=== PATIENT | male | born 1945 | race Caucasian/White ===

== ENCOUNTER 2023-11-28 03:51 | Observation (INO) | payer OTHER, SELFPAY ==
[2023-11-27 17:32] VITALS: BP 124/66
[2023-11-27 17:33] VITALS: BP 124/66
[2023-11-27 17:36] VITALS: BMI 25.2
[2023-11-27 19:00] VITALS: BP 120/65
--- NOTE | 2023-11-27 19:03 | ED.GENMED ---
History of Present Illness
General
Chief Complaint: Musculo-Skeletal Complaint
Source: patient
Exam Limitations: none
Time Seen by Provider: 11/27/23 18:27
Nursing documentation reviewed up to this point in time: agreed with
Travel History
Have you had any contact with someone who has COVID-19?: No
Do you have any symptoms of coronavirus? Fever > 100 degrees, chills, cough, shortness of breath, sore throat, loss of taste or smell, muscle aches, or headache?: No
History of Present Illness
History of Present Illness:
78 y/o M
with h/o afib s/p defib, no thinners, chf, htn,
says he was playing [place] at [employer] and lost his balance, landing on his left side. he was able to get up and was limping with pain on his left upper thigh. pt sat down for a few hours and when he went to stand up couldn't put weight on
his leg
he denies any deformity, numness/tingling/weakness/bruising.
he did not take anything for pain
needed to come via ambulance because he wasn't able to get up from his chair
Past History
Past History
ED Past Medical History: Arrthythmia (Atrial fib), CAD, Cancer (Bladder CA, Skin CA), CHF, HTN, Hypercholesterolemia, MS, Hypothyroidism and Other (Cardiomyopathy, PNA, )
ED Past Surgical History: Cardiac ( pacer/Defibulator, VT ablation, Cardiac arrest), Cholecystectomy and Urological (TURP)
Social History
Tobacco: Non-smoker
Alcohol: None
Drug: None
Personal:
Living: with family
Review of Systems
Review of Systems
Allergies reviewed?: Yes
All Other Systems: Not applicable
Phy Exam
Physical Exam
Physical Exam:
GENERAL: Alert , in no apparent distress
HEAD: NCAT
NECK: no midline tenderness, active ROM intact, no paraspinal muscle tenderness;
CARDIAC: Regular rate and rhythm, no edema
LUNGS: Clear breath sounds bilaterally, no acute respiratory distress, no wheezes/rales/rhonchi
ABDOMEN: Soft, without focal tenderness, no r/g, no cvat
NEUROLOGICAL: Alert and oriented, no focal neuro deficits, CN intact, 5/5 strength, sensation intact
SKIN: Warm and dry,
MUSCULOSKELETAL: No signs of bruising, no significant tenderness, patient has pain in his left groin and left upper thigh with hip flexion and rotation internally and externally, he is able to straight leg raise off the bed approximately 20 degrees
but he does have some pain in that area. There is no back tenderness or back pain
PSYCH: Normal and appropriate interaction.
Course
Orders/Labs/Results
Orders:
Orders
11/27/23 18:04
CR Femur - Left Min 2 Vw Urgent
Comment:
Reason For Exam: fall, pain
Hip, Left 2-3 Views [CR Hip - LT w/wo Pel 2-3 Vw*] Urgent
Comment:
Reason For Exam: fall, pain
Include a pelvis x-ray?: Yes
11/27/23 19:02
Acetaminophen [Tylenol] 650 mg PO NOW STA
11/27/23 20:14
CT Pelvis W/o Iv Contrast Urgent
Comment:
Reason For Exam: left hip and upper thigh pain after fall;
11/27/23 23:06
Complete Blood Count/With Diff Urgent
11/27/23 23:36
Comprehensive Metabolic Panel Urgent
11/28/23 03:32
Admit/Transfer Patient As Directed
Co-Sign Provider:
Level of Care: Observation services
Assign to:: Medical/Surgical
Physician / Group: Deysi/hospitalist
Diagnosis: fall, non-displaced pelvic fx
Reason for Hospitalization: fall, non-displaced pelvic fx
11/28/23 03:33
Code Status As Directed
Resuscitation Status: Full Code
11/28/23 05:21
Acetaminophen [Tylenol] 650 mg PO Q4HPRN PRN
Nitroglycerin Sublingual [Nitrostat (Sublingual)] 0.4 mg SL [id number] PRN
Tramadol HCl [Ultram] 50 mg PO Q6HPRN PRN
11/28/23 05:21
Case Management Consult ONCE
Case Management Consult: Discharge Planning
Activity As Directed
Activity Level: With Assistance
Vital Signs As Directed
Frequency: Per unit guidelines
Pulse Ox/spot Check [RESP] Routine
Quantity: 1
DX Deep Vein Thrombosis Video Routine
11/28/23 05:55
Basic Metabolic Panel IN AM
11/28/23 Breakfast
Cholesterol Lowering
At Your Request: Full Participation
Cholesterol Lowering: Sodium, 2 Gram
11/28/23 07:00
Finasteride [Proscar] 5 mg PO DAILY@0700
Levothyroxine [Synthroid] 50 mcg PO DAILY AT 0700
11/28/23 08:00
Amiodarone [Pacerone] 200 mg PO DAILY
Carvedilol [Coreg] 12.5 mg PO BID
Sacubitril 24/Valsartan 26 [Entresto 24 mg/26 mg] 1 tab PO BID
Spironolactone [Aldactone] 12.5 mg PO DAILY
11/28/23 18:00
Aspirin Low Dose EC [Aspir Low (Enteric Coated)] 81 mg PO QPM
Enoxaparin Sodium [Lovenox] 40 mg SC QPM
Rosuvastatin Calcium [Crestor] 20 mg PO QPM
Abnormal Lab Results
11/27/23 11/27/23
23:06 23:36
WBC 10.9 H 10^3/uL
(4.8-10.8)
RBC 3.80 L 10^6/uL
(4.70-6.10)
Hgb 12.4 L g/dL
(13.0-18.0)
Hct 36.2 L %
(39.0-52.0)
MCV 95.3 H fL
(80.0-94.0)
MCH 32.6 H pg
(27.0-31.0)
Abs Immat Gran (auto) 0.1 H 10^3/uL
(0-0.05)
Absolute Neuts (auto) 8.7 H 10^3/uL
(1.4-6.5)
Absolute Lymphs (auto) 1.0 L 10^3/uL
(1.2-3.4)
Absolute Monos (auto) 1.0 H 10^3/uL
(0.1-0.6)
Neutrophils % 79.4 H %
(42.2-75.2)
Lymphocytes % 9.1 L %
(20.5-51.1)
BUN 29 H mg/dl
(9-20)
Glucose 121 H mg/dl
(70-99)
Total Protein 5.6 L g/dl
(6.3-8.2)
Albumin 3.4 L g/dl
(3.5-5.0)
11/27/23 23:06
11/27/23 23:36
Vital Signs
Initial and Last Documented VS:
Initial Vital Signs
Temp Pulse Resp BP Pulse Ox
98.2 F 61 18 124/66 96
11/27/23 17:32 11/27/23 17:32 11/27/23 17:32 11/27/23 17:32 11/27/23 17:32
Last Documented Vital Signs
Temp Pulse Resp BP Pulse Ox
97.8 F 64 16 115/67 100
11/30/23 07:10 11/30/23 12:36 11/30/23 07:10 11/30/23 12:36 11/30/23 08:15
MDM/Problems Addressed
Differential Diagnosis Includes:
pelvic fracture, hip fracture, contusion
MDM/Problems Addressed:
78 y/o M with h/o defibrillator, afib, htn, hld, chf
here for left upper leg pain after mechanical fall today
was initially able to walk on it and then had trouble getting up from sitting
lives alone at [facility]
no thinners
no head strike
didn't get presyncopal
pt has no tenderness to palpation of the leg
nv intact
able to flex the hip some and rotate but with pain
able to straight leg raise but has some pain
xrays independently reviewed by me and no obvious fx
medicated with tylenol and attempted to get up but couldn't weight bear
ct shows a superior pubic ramus fx
pt tried to get up with a walker and is not able to walk far enough to feel safe to go home and is agreeable to stay for placement.
*Critical Care Note
Total Time (30-74mins, 75-104mins- exclusive of procedures): Not Applicable
ED Attending Note
-
Portions of this chart may have been created with voice recognition software.� Occasional wrong word or��sound alike� substitutions may have occurred due to the inherent limitations of voice recognition software.
Discharge Plan
Departure
Patient Disposition: Admit
Date of Disposition: 11/27/23
Time of Disposition: 22:31
Admit to: Med/Surg
Presentation/result/management discussed w/ accepting MD/DO: Hospitalist
Condition: Fair
Covid-19: Not Applicable
Discharge Problem:
Fracture of pubic ramus
Interventions
Interventions:
*Risk Screen - Suicide Last Done: 11/28/23 04:52
*General Assessment Last Done: 11/27/23 17:36
*Neglect/Abuse Screening Last Done: 11/27/23 17:36
ED- Fall Risk Assessment Last Done: 11/27/23 23:07
*ED COVID-19 Vaccine History Last Done: 11/28/23 04:52
*Nursing Disposition Last Done: 11/28/23 04:30
ED-Musculoskeletal Assessment Last Done: 11/27/23 23:07
Discharge Date and Time
Discharge Date/Time: 11/28/23 05:04
[2023-11-27] MEDS: TYLENOL 650 MG PO (19:05)
[2023-11-27 22:57] VITALS: BP 98/59
[2023-11-27 23:00] VITALS: BP 98/61
[2023-11-27 23:06] VITALS: BP 105/53
[2023-11-27 23:25] LABS: % Basophils 0.5 % (0-2); % Eosinophils 1.3 % (0-6); % Immature Granulocytes 0.5 % (0-0.5); % Lymphocytes 9.1 % (20.5-51.1); % Monocytes 9.2 % (1.7-9.3); % Neutrophils 79.4 % (42.2-75.2); Absolute Basophils 0.1 10^3/uL (0-0.2); Absolute Eosinophils 0.1 10^3/uL (0-0.7); Absolute Immature Granulocytes 0.1 10^3/uL (0-0.05); Absolute Neutrophils 8.7 10^3/uL (1.4-6.5); Hematocrit 36.2 % (39.0-52.0); Hemoglobin 12.4 g/dL (13.0-18.0); Mean Corp Hgb Conc. 34.3 g/dL (33.0-37.0); Mean Corpuscular Hgb 32.6 pg (27.0-31.0); Mean Corpuscular Volume 95.3 fL (80.0-94.0); Mean Platelet Volume 9.7 fL (7.4-10.4); Nucleated Red Blood Cells % 0 % (-); Platelet Count 155 10^3/uL (130-400); Red Cell Dist. Width 13.4 % (11.5-14.5); White Blood Cell Count 10.9 10^3/uL (4.8-10.8)
[2023-11-27 23:58] LABS: ALT (SGPT) 46 U/L (0-50); AST (SGOT) 50 U/L (17-59); Albumin 3.4 g/dl (3.5-5.0); Alkaline Phosphatase 90 U/L (38-126); Blood Urea Nitrogen 29 mg/dl (9-20); Calcium 8.6 mg/dl (8.4-10.2); Carbon Dioxide 27 mmol/L (22-30); Chloride 105 mmol/L (98-107); Estimated Creatinine Clearance 44 ml/min; Glucose 121 mg/dl (70-99); Potassium 4.9 mmol/L (3.5-5.1); Sodium 137 mmol/L (135-145); Total Protein 5.6 g/dl (6.3-8.2); eGFR > 60.00
[2023-11-28] VITALS (12 sets, daily range): BP systolic 68–123; BP diastolic 40–74; PULSE 60–64; O2SAT 94; BMI 23.5
--- NOTE | 2023-11-28 03:26 | HPS.HSE ---
Family Physician
-
Family Physician: Sam Saavedra
Chief Complaint
-
unable to ambulate due to left leg pain
History of Present Illness
The patient is a pleasant 78 yo gentleman with PMH significant for A.fib, CAD, bladder cancer, CHF, HTN, cardiomyopathy, who presents from [facility] following playing Ping Pong with a friend and falling after losing his balance. He was limping
due to left upper thigh pain and unable to ambulate. He was having difficulty putting weight on left leg, found to have pubic ramus fracture. No deformity. No LOC, no CP, no SOB, no palpitations.
Medical History
Past Medical History
Past Medical History: Reports Other
Additional Past Medical History:
ASCVD
Ischemic Cardiomyopathy / Chronic HFrEF
Paroxysmal Atrial Fibrillation
Ventricular Tachycardia with History of VT Shock and Ablation (2017)
CKD III
Bladder Cancer
DDD
Hypothyroidism
BPH
Past Surgical History: Reports Other
Additional Past Surgical History:
BiV AICD Placement
VT Ablation
TURP
Cholecystectomy
Non-Melanoma Skin Cancer Excisions
Social History
Tobacco: Non-smoker
Alcohol: Occasional (Rarely)
Drug: None
Personal:
Living: With Family
Family History
Family History: Not pertinent
Allergies / Home Medications
Allergies reflects when Allergies were last updated in [facility].
Home Medications with original date entered in [facility]
Allergy/Medication List:
Allergies
Allergy/AdvReac Type Severity Reaction Status Date / Time
lisinopril Allergy Rash Verified 11/27/23 17:32
Home Medications
rosuvastatin 20 mg tablet (Crestor) 20 mg PO QPM High cholesterol 02/16/17
levothyroxine 50 mcg tablet 50 mcg PO DAILY AT 0700 Thyroid 12/06/21
nitroglycerin 0.4 mg sublingual tablet 0.4 mg sublingual [id number] PRN chest pain 12/06/21
amiodarone 200 mg tablet (Pacerone) 200 mg PO DAILY Heart disease/condition 12/09/21
aspirin 81 mg tablet,delayed release 81 mg PO QPM Blood clot prevention/tx 04/07/22
dutasteride 0.5 mg capsule 0.5 mg PO DAILY@0700 Urinary issue 04/07/22
carvedilol 12.5 mg tablet 12.5 mg PO BID Blood pressure #1 tab 01/12/23
sacubitril 24 mg-valsartan 26 mg tablet (Entresto) 1 tab PO BID Heart Failure #1 tab 01/12/23
spironolactone 25 mg tablet 12.5 mg PO DAILY Fluid retention/Swelling #1 tab 01/12/23
Review of Systems
-
A 12 point ROS was completed and negative except as noted: Yes
Physical Exam
Vital Signs
Vital Signs
Temp Pulse Resp BP Pulse Ox
98.2 F 60 18 96/58 95
11/27/23 17:32 11/28/23 02:10 11/27/23 22:01 11/28/23 02:00 11/28/23 02:00
Physical Exam
General: Well Developed, Well Nourished, No Apparent Distress, Comfortable and Conversant
HEENT: NormoCephalic and Anicteric
Respiratory: Clear
GI: Soft, Non Tender and Non Distended
Musculoskeletal: No Clubbing, No Cyanosis and No Edema
Skin: Warm
Neuro: AO x 3 and No Motor Deficits
Psych: Calm
Laboratory Results
-
11/27/23 23:06
11/27/23 23:36
Laboratory Results
Total Bilirubin 1.0 mg/dl (0.2-1.3) 11/27/23 23:36
AST 50 U/L (17-59) 11/27/23 23:36
ALT 46 U/L (0-50) 11/27/23 23:36
Alkaline Phosphatase 90 U/L (38-126) 11/27/23 23:36
Impression/Plan
-
IMPRESSION:
Mechanical fall at [facility]
#Nondisplaced fracture of the left inferior pubic ramus, stable pelvic fracture�
#Diffuse osteopenia suspected
-PT/OT, evaluate for rehab placement at [facility], CM consult as well
-supportive management
Chronic medical issues:
ASCVD
Ischemic Cardiomyopathy / Chronic HFrEF
Paroxysmal Atrial Fibrillation
Ventricular Tachycardia with History of VT Shock and Ablation (2017)
CKD III
Bladder Cancer
DDD
Hypothyroidism
BPH
DVT proph
Full Code
[2023-11-28] MEDS: SYNTHROID 50 MCG PO (06:32)
[2023-11-28] MEDS: PROSCAR 5 MG PO (06:32)
[2023-11-28 06:44] LABS: Blood Urea Nitrogen 26 mg/dl (9-20); Calcium 8.6 mg/dl (8.4-10.2); Carbon Dioxide 27 mmol/L (22-30); Chloride 103 mmol/L (98-107); Estimated Creatinine Clearance 46 ml/min; Glucose 111 mg/dl (70-99); Potassium 4.4 mmol/L (3.5-5.1); Sodium 138 mmol/L (135-145); eGFR > 60.00
[2023-11-28] MEDS: ALDACTONE 12.5 MG PO (08:43)
[2023-11-28] MEDS: COREG 12.5 MG PO (08:45)
[2023-11-28] MEDS: PACERONE 200 MG PO (08:45)
[2023-11-28] MEDS: ENTRESTO 24 MG/26 MG 1 TAB PO (08:45)
--- NOTE | 2023-11-28 09:56 | CM ---
Reviewed the chart notes and spoke with the patient at the bedside. The patient is admitted under observational status. The NAIDU letter was provided and explained. The patient had no questions with regards to the letter.
The patient is recently . The patient resides alone in [facility] independent living. The patient reports no DME/VN/SNF in the past. The patient confirmed his pharmacy of choice is the [facility]. The patient's
discharge plans will depend on the patient's progress. May need SNF/rehab prior to transitioning back to home. Waiting on PT/OT evaluation/recommendation. CM continues to be available to patient/family and is monitoring medical plan for needs at
discharge.
Plan: Discharge plans will depend on the patient's progress.
--- NOTE | 2023-11-28 11:06 | W.PN.UPDATE ---
Update Note
Progress Note Update
Seen and examined independent of overnight physician.
States of sacral pain with activity. Denies any numbing or tingling.
General: Well Developed, Well Nourished, No Apparent Distress, Comfortable and Conversant
HEENT: NormoCephalic and Anicteric
Respiratory: Clear
GI: Soft, Non Tender and Non Distended
Musculoskeletal: No Clubbing, No Cyanosis and No Edema
Skin: Warm
Neuro: AO x 3 and No Motor Deficits
Psych: Calm
IMPRESSION:
Mechanical fall at [facility]
#Nondisplaced fracture of the left inferior pubic ramus, stable pelvic fracture�
#Diffuse osteopenia suspected
-PT/OT, evaluate for rehab placement at [facility], CM consult as well
-supportive management
-CT pelvis was done which showed suspected diffuse osteopenia. Nondisplaced fracture of the left inferior pubic ramus progress appreciated on axial imaging. No definitive fracture of the left superior pubic ramus although subtle fracture may be
difficult to identify particularly in light of finding of diffuse osteopenia.
-Left hip x-ray negative for fracture.
Chronic medical issues:
ASCVD
Ischemic Cardiomyopathy / Chronic HFrEF-Cont Aldactone, Entresto, carvedilol and aspirin
Paroxysmal Atrial Fibrillation�continue amiodarone. Not on anticoagulation. Continue aspirin
Ventricular Tachycardia with History of VT Shock and Ablation (2017)�continue amiodarone
CKD III
Bladder Cancer
DDD
Hypothyroidism
BPH
DVT proph
Full Code
PT/OT-Probably will require SNF. Pt interested in SNF at [facility].
[2023-11-28] MEDS: TYLENOL 650 MG PO (13:10)
[2023-11-28] MEDS: NSS 500 IV (15:29)
[2023-11-28] MEDS: ProAmatine 5 MG PO (15:32)
[2023-11-28] MEDS: LOVENOX 40 MG SC (17:32)
[2023-11-28] MEDS: ASPIR LOW (ENTERIC COATED) 81 MG PO (17:32)
[2023-11-28] MEDS: CRESTOR 20 MG PO (17:32)
[2023-11-28] MEDS: COREG PO (22:41)
[2023-11-29] VITALS (8 sets, daily range): BP systolic 76–128; BP diastolic 46–73; PULSE 61–62; O2SAT 99; BMI 24.1
[2023-11-29] MEDS: PROSCAR 5 MG PO (06:07)
[2023-11-29] MEDS: SYNTHROID 50 MCG PO (06:07)
[2023-11-29] MEDS: COREG 12.5 MG PO (08:32)
[2023-11-29] MEDS: PACERONE 200 MG PO (08:33)
--- NOTE | 2023-11-29 10:30 | W.PN.HOSP.TC ---
Today's Communication/Plan
-
monitor BP
hold entresto/aldactone
Await placement
Assessment / Plan
Assessment / Plan
General: Well Developed, Well Nourished, No Apparent Distress, Comfortable and Conversant
HEENT: NormoCephalic and Anicteric
Respiratory: Clear
GI: Soft, Non Tender and Non Distended
Musculoskeletal: No Clubbing, No Cyanosis and No Edema
Skin: Warm
Neuro: AO x 3 and No Motor Deficits
Psych: Calm
IMPRESSION:
Mechanical fall at [facility] ?due to orthostatic hypotension
#Nondisplaced fracture of the left inferior pubic ramus, stable pelvic fracture�
#Diffuse osteopenia suspected
-PT/OT, evaluate for rehab placement at [facility], CM consult as well
-supportive management
-CT pelvis was done which showed suspected diffuse osteopenia.� Nondisplaced fracture of the left inferior pubic ramus progress appreciated on axial imaging.� No definitive fracture of the left superior pubic ramus although subtle fracture may be
difficult to identify particularly in light of finding of diffuse osteopenia.
-Left hip x-ray negative for fracture.
Chronic medical issues:
ASCVD
Ischemic Cardiomyopathy / Chronic HFrEF-Cont carvedilol and aspirin. Severe orthostatic hypotension noted yesterday. Pt was symptomatic. Pt agrees and wants to hold off on restarting entresto and aldactone till OP d/w with his cardiology. BP 122/60
Paroxysmal Atrial Fibrillation�continue amiodarone.� Not on anticoagulation.� Continue aspirin
Ventricular Tachycardia with History of VT Shock and Ablation (2017)�continue amiodarone
CKD III
Bladder Cancer
DDD
Hypothyroidism
BPH
DVT proph-lovenox
Full Code
PT/OT-SNF. Await placement. CM aware.
Anticipated Discharge: Today
Subjective/Interval History
-
Date of Service: November 29, 2023
severe episode of hypotension orthostatic yesterday
this am feeling better
remains with some pain
wants to work with PT
Objective Data
-
Vital Signs:
Vital Signs
Temp Pulse Resp BP Pulse Ox
98.0 F 62 16 122/60 95
11/29/23 07:45 11/29/23 08:32 11/29/23 07:45 11/29/23 08:32 11/29/23 07:45
I&O
11/28/23 11/29/23 11/30/23
06:59 06:59 06:59
Intake Total 1450 / 1450
Output Total 1190 / 1190
Balance 260 / 260
--- NOTE | 2023-11-29 15:00 | CM ---
Reviewed the chart notes and spoke with the patient at the bedside. [facility] will have a bed tomorrow. Auth obtained starting 11/30-12/04; NRD 12/04; fax: [phone]; Auth # [id number]; Ambulance Auth # [id number] - Acute Care.
Call report to: [phone]
Fax report to: [phone]
Medical necessity and transport forms on chart.
--- NOTE | 2023-11-29 15:09 | VATNOTE ---
Called tocandice infusion infiltrate. Right arm elevated on pillows cool compress applied. No c/o pain at this time. Will monitor closely.
[2023-11-29] MEDS: ProAmatine 5 MG PO (15:16)
--- NOTE | 2023-11-29 15:17 | PTCARENOTE ---
OT reported to RN that patients blood pressure at rest was 106/50 HR 61 but after walking, BP dropped to 76/46 HR 62. Patient c/o feeling tired. Dr. Mendoza made aware. Midodrine 5 mg po ordered stat and standing. Given at 1517. BP at that time was
110/55 sitting.
[2023-11-29] MEDS: LOVENOX 40 MG SC (17:22)
[2023-11-29] MEDS: CRESTOR 20 MG PO (17:22)
[2023-11-29] MEDS: ASPIR LOW (ENTERIC COATED) 81 MG PO (17:22)
[2023-11-29] MEDS: ProAmatine PO (17:25)
[2023-11-29] MEDS: COREG 6.25 MG PO (20:00)
[2023-11-30 05:07] VITALS: BMI 24.3
[2023-11-30] MEDS: PROSCAR 5 MG PO (05:59)
[2023-11-30] MEDS: SYNTHROID 50 MCG PO (06:00)
[2023-11-30 07:10] VITALS: BP 114/64
[2023-11-30 08:00] VITALS: BP 112/62; BP 113/64; BP 114/64; PULSE 61; PULSE 63; PULSE 64
[2023-11-30] MEDS: COREG 6.25 MG PO (08:22)
[2023-11-30] MEDS: PACERONE 200 MG PO (08:22)
[2023-11-30] MEDS: ProAmatine 5 MG PO ×2 (08:22→12:36)
--- NOTE | 2023-11-30 10:46 | W.PN.HOSP.TC ---
Today's Communication/Plan
-
DC SNF
Assessment / Plan
Assessment / Plan
General: Well Developed, Well Nourished, No Apparent Distress, Comfortable and Conversant
HEENT: NormoCephalic and Anicteric
Respiratory: Clear
GI: Soft, Non Tender and Non Distended
Musculoskeletal: No Clubbing, No Cyanosis and No Edema
Skin: Warm
Neuro: AO x 3 and No Motor Deficits
Psych: Calm
IMPRESSION:
Mechanical fall at [facility] ?due to orthostatic hypotension
#Nondisplaced fracture of the left inferior pubic ramus, stable pelvic fracture�in setting of osteopenia
#Diffuse osteopenia suspected
-PT/OT, evaluate for rehab placement at [facility], CM consult as well
-supportive management
-CT pelvis was done which showed suspected diffuse osteopenia.� Nondisplaced fracture of the left inferior pubic ramus progress appreciated on axial imaging.� No definitive fracture of the left superior pubic ramus although subtle fracture may be
difficult to identify particularly in light of finding of diffuse osteopenia.
-Left hip x-ray negative for fracture.
Chronic medical issues:
ASCVD
Ischemic Cardiomyopathy / Chronic HFrEF-Cont carvedilol and aspirin. Severe orthostatic hypotension noted with therapy pt was symptomatic. Pt agrees and wants to hold off on restarting entresto and aldactone till OP d/w with his cardiology.
Negative orthostatic this morning with midodrine. Patient said he will discuss with his primary knot tying operator about if he needs to go back on Entresto and Aldactone.
Paroxysmal Atrial Fibrillation�continue amiodarone.� Not on anticoagulation.� Continue aspirin
Ventricular Tachycardia with History of VT Shock and Ablation (2017)�continue amiodarone
CKD III
Bladder Cancer
DDD
Hypothyroidism
BPH
DVT proph-lovenox
Full Code
PT/OT-SNF.
More than 30 minutes spent in discharge including
Final examination of the patient
Summarizing hospital stay
Instructions for continuing care to all relevant caregivers
Preparation of discharge records, prescriptions, and referral forms
Total time spent (in minutes): 45
Anticipated Discharge: Today
Subjective/Interval History
-
Date of Service: November 30, 2023
Patient denies any pelvic pain
Denies any lightheaded or dizziness
Objective Data
-
Vital Signs:
Vital Signs
Temp Pulse Resp BP Pulse Ox
97.8 F 64 16 112/62 100
11/30/23 07:10 11/30/23 08:22 11/30/23 07:10 11/30/23 08:22 11/30/23 08:15
I&O
11/29/23 11/30/23 12/01/23
06:59 06:59 06:59
Intake Total 1450 / 1450 480 / 480
Output Total 1190 / 1190 950 / 950
Balance 260 / 260 -470 / -470
--- NOTE | 2023-11-30 11:06 | CM ---
Reviewed the chart notes and spoke with the patient at the bedside. [facility] will have a bed tomorrow. Auth obtained starting 11/30-12/04; NRD 12/04; fax: [phone]; Auth # [id number]; Ambulance Auth # [id number] - Acute Care. [place] falguni Persaud
[place] Admissions Liaison provided with auth information.
Call report to: [phone]
Fax report to: [phone]
Medical necessity and transport forms on chart.
--- NOTE | 2023-11-30 11:09 | W.DCSUMMARY ---
Discharge Summary
Discharge Data
Date of Admission: 11/28/23
Date of Discharge: 11/30/23
-
Pending Results: No
Hospital Course
78-year-old male past medical history of CAD, chronic HFrEF, atrial fibrillation, ventricular tachycardia, CKD, bladder cancer, osteoarthritis, hypothyroidism, BPH, orthostatic hypotension who is presenting after mechanical fall at [facility].
Patient underwent CT of the pelvis which showed uspected diffuse osteopenia.� Nondisplaced fracture of the left inferior pubic ramus progress appreciated on axial imaging.� No definitive fracture of the left superior pubic ramus although subtle
fracture may be difficult to identify particularly in light of finding of diffuse osteopenia. Patient was otherwise calm Occupational Therapy. Patient was found to have a severely low blood pressure and found to be symptomatic with orthostatic
hypotension. Aldactone and Entresto was placed on hold and patient was recommended to discuss with his primary physical therapy teacher and patient agreed with plan. Carvedilol dose was decreased to 6.25 mg twice daily. Patient remained without severe pain
and will be going to group home facility.
Discharge Plan
-
Patient Disposition: Shelter/SNF
Discharge Diagnosis/Procedures: Mechanical fall leading to nondisplaced fracture of the left inferior pubic ramus in the setting of osteopenia likely secondary to orthostatic hypotension
Condition: Fair
Diet: 2 Gram Sodium and Restrict fluids to 48 oz
Activity: With assistance and As tolerated
Driving Restrictions: Not until seen by your Dr
Referrals:
Sam Saavedra MD [Family Provider] - in less than 1 week
Remy Noland MD [Active] - in one to two weeks
Prescriptions:
New
acetaminophen 325 mg Tablet
650 mg PO Q4HPRN PRN (Reason: mild pain/PALACIO/temp> 100.4F) 14 Days Qty: 30 0RF
midodrine 5 mg Tablet
5 mg PO TID@0800,1300,1800 Qty: 90 0RF
Rx Instructions:
Hold for SBP>110
Continued
rosuvastatin [Crestor] 20 MG tablet
20 mg PO QPM
Hold Instructions: Resume on 01/26/23. Restart once liver function numbers are back to normal.
levothyroxine 50 MCG tablet
50 mcg PO DAILY AT 0700
nitroglycerin 0.4 MG tablet, sublingual
0.4 mg sublingual [id number] PRN (Reason: chest pain)
amiodarone [Pacerone] 200 MG tablet
200 mg PO DAILY
Patient Comments:
pt stated Dr Noland decreased dose to daily
aspirin 81 MG tablet,delayed release (DR/EC)
81 mg PO QPM
dutasteride 0.5 MG capsule
0.5 mg PO DAILY@0700
Changed
carvedilol 12.5 MG tablet
6.25 mg PO BID Qty: 1 0RF
Held
spironolactone 12.5 MG tablet
12.5 mg PO DAILY Qty: 1 0RF
Hold Instructions: Resume on 12/28/23. Hold till seen by cardiology evaluation
Patient Comments:
PT UNSURE OF MG, PHARMACY TO CHECK
Rx Instructions:
See cardiology instruction regarding restarting
Entresto 24-26 mg Tablet
1 tab PO BID Qty: 1 0RF
Hold Instructions: Resume on 12/28/23. Hold till seen by cardiology evaluation
Rx Instructions:
See cardiology instruction regarding restarting
Discharge Orders:
Discharge Patient (As Directed); Ordered 11/30/23
Ordered By: Fredy Mendoza
[2023-11-30 11:35] LABS: COVID-19 Antigen Negative (Negative)
== END 2023-11-30 14:53 ==
LOC: 2 SOUTH 03:51
PROVIDERS: ADMITTING PHYSICIAN Internal Medicine; ATTENDING PHYSICIAN Hospitalist; EMERGENCY PHYSICIAN Emergency Medicine; FAMILY PHYSICIAN Family Medicine
DX: S32.592A Other specified fracture of left pubis, initial encounter for closed fracture (principal); M79.652 Pain in left thigh; I95.1 Orthostatic hypotension; W01.0XXA Fall on same level from slipping, tripping and stumbling without subsequent striking against object, initial encounter; Y93.89 Activity, other specified; I13.0 Hypertensive heart and chronic kidney disease with heart failure and stage 1 through stage 4 chronic kidney disease, or unspecified chronic kidney disease; I25.10 Atherosclerotic heart disease of native coronary artery without angina pectoris; E03.9 Hypothyroidism, unspecified; I25.5 Ischemic cardiomyopathy; E78.00 Pure hypercholesterolemia, unspecified; Y92.838 Other recreation area as the place of occurrence of the external cause; I48.0 Paroxysmal atrial fibrillation; I50.22 Chronic systolic (congestive) heart failure; N40.0 Benign prostatic hyperplasia without lower urinary tract symptoms; N18.30 Chronic kidney disease, stage 3 unspecified; I25.2 Old myocardial infarction; Z85.51 Personal history of malignant neoplasm of bladder; Z87.01 Personal history of pneumonia (recurrent); Z90.49 Acquired absence of other specified parts of digestive tract; Z86.74 Personal history of sudden cardiac arrest; Z60.2 Problems related to living alone; Z95.810 Presence of automatic (implantable) cardiac defibrillator; Z85.828 Personal history of other malignant neoplasm of skin; Z90.79 Acquired absence of other genital organ(s); Z88.8 Allergy status to other drugs, medicaments and biological substances; Z79.82 Long term (current) use of aspirin; Z79.890 Hormone replacement therapy; Z11.52 Encounter for screening for COVID-19
CPT/HCPCS: 72192; 73502; 73552; 80048; 80053; 85025; 87811; 96361; 96365; 96375; 96376; 97162; 97166; 97530; 97535; 99285; G0378

== ENCOUNTER → 2023-12-22 11:09 | Outpatient (REF) | payer OTHER, SELFPAY | LOC: HWRAD 11:09 | PROVIDERS: ATTENDING PHYSICIAN Internal Medicine | DX: M54.50 Low back pain, unspecified (principal) | CPT/HCPCS: 72110 ==

== ENCOUNTER 2023-12-26 20:01 | Inpatient (IN) | payer OTHER, SELFPAY ==
[2023-12-26 15:50] VITALS: BMI 25.8
--- NOTE | 2023-12-26 16:00 | ED.GENMED ---
History of Present Illness
General
Chief Complaint: Swelling
Time Seen by Provider: 12/26/23 16:00
Travel History
Have you had any contact with someone who has COVID-19?: No
Do you have any symptoms of coronavirus? Fever > 100 degrees, chills, cough, shortness of breath, sore throat, loss of taste or smell, muscle aches, or headache?: No
History of Present Illness
History of Present Illness:
HPI: Patient presents from [facility] independent living by EMS. He was concerned because of lower extremity edema without shortness of breath. He was also concerned of ongoing back discomfort. He was recently found to have a pubic ramus
fracture on the left side last admission. While in the hospital he was hypotensive and was started on midodrine and Aldactone and Entresto was held. The notes from today from [facility] indicated the patient saw a healthcare there today due to
legs feeling heavy with increased welling despite receiving Aldactone and Lasix. A recent ultrasound was negative for DVT. Dr. Mueller's note recommends IV diuretic, repeat echo, more advanced imaging of the lumbar spine than just plain film.
EXAM:
GENERAL: Well appearing in no distress
HEENT: Moist oral mucosa
CARDIOVASCULAR: No murmurs, normal heart rate and rhythm, No chest wall tenderness, device noted the right anterior chest wall with scar
PULMONARY: No respiratory distress, some faint rales
ABDOMEN: Soft with no peritoneal signs, no tenderness
NEUROLOGIC: Excellent strength all extremities, no coordination deficits
PSYCHIATRIC: Appropriate mental status, normal insight and judgement
BACK: Decreased active range of motion of the lumbar spine due to pain
EXTREMITIES: Nontender, 2+ bilateral edema, moves all extremities equally
SKIN: No rash, no lesions
ED COURSE:
4:15 PM: I initially evaluated patient
NUMBER AND COMPLEXITY OF PROBLEMS ADDRESSED AT THE ENCOUNTER
� Chronic conditions affecting care: A-fib, CHF, AICD/history of cardiac arrest, high blood pressure, hyperlipidemia, recent pubic ramus fracture
� Acute Exacerbation and/or Progression of Chronic Illness: This is a subacute problem
� Differential Diagnosis includes: Progression of lumbar spine fracture, worsening CHF
AMOUNT AND/OR COMPLEXITY OF DATA TO BE REVIEWED AND ANALYZED
� I performed an independent evaluation of and my interpretation is:
EKG: AV paced 60, no significant change from 01/10/2023
CT: CT shows transverse process fracture and sacral fracture
X-rays: Chest x-ray suggest volume overload/pulmonary congestion
Laboratory Studies: CBC shows mild anemia near recent baseline, chemistries unremarkable, troponin 0.021, BNP 12,500 up from 818 last year
Other:
� Review of other/old records: I reviewed notes from [facility]. Dr. Mueller saw the patient today
� Clinical information was obtained by an independent historian: I also spoke to the daughter at bedside
� Prescriptions/Medications Considered but not given:
� Further testing considered but not performed:
RISK OF COMPLICATIONS AND/OR MORBIDITY OR MORTALITY OF PATIENT MANAGEMENT
� Social determinants of health affecting care: Currently staying at [facility]
� Discussion with other providers: Dr. Bennett for admission at 7:10 PM
� Escalation of care including admission/observation vs risk of discharge considered: Dr. Mueller's note request further imaging of the L-spine, echo, IV diuresis. I feel this would be reasonable and we will plan keeping in the
hospital. On reassessment at 7:20 PM, the patient does have ongoing pain and now request something more for pain. Will try dose of tramadol�he tells me he was trying to avoid narcotics but feels the pain is too significant to not try a narcotic.
He has not improved with Tylenol. I also gave IV diuretic.
Past History
Past History
ED Past Medical History: Arrthythmia (Atrial fib), CAD, Cancer (Bladder CA, Skin CA), CHF, HTN, Hypercholesterolemia, [place], Hypothyroidism and Other (Cardiomyopathy, PNA, )
ED Past Surgical History: Cardiac ( pacer/Defibulator, VT ablation, Cardiac arrest), Cholecystectomy and Urological (TURP)
Social History
Tobacco: Non-smoker
Alcohol: None
Drug: None
Personal:
Living: with family
Phy Exam
Physical Exam
Physical Exam:
See HPI
Scores
Heart Failure Risk
Heart Failure Risk Score: Not Applicable
Course
Orders/Labs/Results
Orders:
Orders
12/26/23 15:54
Electrocardiogram (*1) Urgent
Reason for Study: Other
Other Reason for Exam: Respiratory Distress
Cardiac Monitoring- Treatment ONCE
EKG- Treatment ONCE
IV Insert/Care/Rem.- Treatment PRN
O2 Therapy [RESP] Urgent
Titrate/Wean O2 to maintain O2 sat greater than (%): 93
Special Instructions: TO MAINTAIN CONTINUOUS O2 SATS >/= 93%
Pulse Ox/cont/shift [RESP] Urgent
Quantity: 1
Special Instructions: continuous pulse ox
12/26/23 16:04
Complete Blood Count/With Diff Urgent
Comprehensive Metabolic Panel Urgent
NT-proBNP Urgent
Troponin I Urgent
CR Chest Portable - 1 View Urgent
Comment:
Reason For Exam: sob
Reason Study Needs to be Portable: Unable to Transport
12/26/23 16:32
CT Lumbar Spine W/o Iv Contras Urgent
Comment:
Reason For Exam: recent fall worsening low back pain
12/26/23 16:42
Furosemide [Lasix] 40 mg IV NOW STA
12/26/23 19:23
Tramadol HCl [Ultram] 50 mg PO NOW STA
Abnormal Lab Results
12/26/23
16:04
RBC 3.90 L 10^6/uL
(4.70-6.10)
Hgb 12.7 L g/dL
(13.0-18.0)
Hct 38.2 L %
(39.0-52.0)
MCV 97.9 H fL
(80.0-94.0)
MCH 32.6 H pg
(27.0-31.0)
Abs Immat Gran (auto) 0.1 H 10^3/uL
(0-0.05)
Absolute Neuts (auto) 7.1 H 10^3/uL
(1.4-6.5)
Absolute Lymphs (auto) 0.9 L 10^3/uL
(1.2-3.4)
Absolute Monos (auto) 0.9 H 10^3/uL
(0.1-0.6)
Immature Gran % 0.7 H %
(0-0.5)
Neutrophils % 77.5 H %
(42.2-75.2)
Lymphocytes % 9.9 L %
(20.5-51.1)
Monocytes % 9.6 H %
(1.7-9.3)
Glucose 102 H mg/dl
(70-99)
Alkaline Phosphatase 141 H U/L
(38-126)
Total Protein 6.2 L g/dl
(6.3-8.2)
12/26/23 16:04
12/26/23 16:04
Vital Signs
Initial and Last Documented VS:
Initial Vital Signs
BP
152/71
12/26/23 16:01
Last Documented Vital Signs
Temp Pulse Resp BP Pulse Ox
98.0 F 76 24 142/74 92
12/26/23 16:03 12/26/23 19:04 12/26/23 19:04 12/26/23 19:04 12/26/23 19:04
*Critical Care Note
Total Time (30-74mins, 75-104mins- exclusive of procedures): Not Applicable
ED Attending Note
-
Portions of this chart may have been created with voice recognition software.� Occasional wrong word or��sound alike� substitutions may have occurred due to the inherent limitations of voice recognition software.
Discharge Plan
Departure
Patient Disposition: Admit
Date of Disposition: 12/26/23
Time of Disposition: 19:10
Presentation/result/management discussed w/ accepting MD/DO: Hospitalist
Discharge Problem:
Volume overload
Prescriptions:
No Action
rosuvastatin [Crestor] 20 MG tablet
20 mg PO QPM
Hold Instructions: Resume on 01/26/23. Restart once liver function numbers are back to normal.
levothyroxine 50 MCG tablet
50 mcg PO DAILY AT 0700
nitroglycerin 0.4 MG tablet, sublingual
0.4 mg sublingual [id number] PRN (Reason: chest pain)
amiodarone [Pacerone] 200 MG tablet
200 mg PO DAILY
Patient Comments:
pt stated Dr Noland decreased dose to daily
aspirin 81 MG tablet,delayed release (DR/EC)
81 mg PO QPM
dutasteride 0.5 MG capsule
0.5 mg PO DAILY@0700
spironolactone 12.5 MG tablet
12.5 mg PO DAILY Qty: 1 0RF
Hold Instructions: Resume on 12/28/23. Hold till seen by cardiology evaluation
Patient Comments:
PT UNSURE OF MG, PHARMACY TO CHECK
Rx Instructions:
See cardiology instruction regarding restarting
acetaminophen 325 mg Tablet
650 mg PO Q4HPRN PRN (Reason: mild pain/PALACIO/temp> 100.4F) 14 Days Qty: 30 0RF
midodrine 5 mg Tablet
5 mg PO TID@0800,1300,1800 Qty: 90 0RF
Rx Instructions:
Hold for SBP>110
carvedilol 6.25 mg tablet
6.25 mg PO BID
furosemide 20 mg tablet
20 mg PO DAILY
Referrals:
Padmini Mueller DO [Family Provider] -
Interventions
Interventions:
*Risk Screen - Suicide Last Done: 12/26/23 15:53
*General Assessment Last Done: 12/26/23 15:53
*Neglect/Abuse Screening Last Done: 12/26/23 15:53
ED- Fall Risk Assessment Last Done: 12/26/23 15:53
*ED COVID-19 Vaccine History Last Done: 12/26/23 15:53
ED- Cardiac Assessment Last Done: 12/26/23 16:04
ED- Pulmonary Assessment Last Done: 12/26/23 16:04
ED-Skin Assessment Last Done: 12/26/23 16:10
[2023-12-26 16:01] VITALS: BP 152/71
[2023-12-26 16:03] VITALS: BP 152/71
[2023-12-26 16:12] LABS: % Basophils 0.7 % (0-2); % Eosinophils 1.6 % (0-6); % Immature Granulocytes 0.7 % (0-0.5); % Lymphocytes 9.9 % (20.5-51.1); % Monocytes 9.6 % (1.7-9.3); % Neutrophils 77.5 % (42.2-75.2); Absolute Basophils 0.1 10^3/uL (0-0.2); Absolute Eosinophils 0.2 10^3/uL (0-0.7); Absolute Immature Granulocytes 0.1 10^3/uL (0-0.05); Absolute Lymphocytes 0.9 10^3/uL (1.2-3.4); Absolute Monocytes 0.9 10^3/uL (0.1-0.6); Absolute Neutrophils 7.1 10^3/uL (1.4-6.5); Hematocrit 38.2 % (39.0-52.0); Hemoglobin 12.7 g/dL (13.0-18.0); Mean Corp Hgb Conc. 33.2 g/dL (33.0-37.0); Mean Corpuscular Hgb 32.6 pg (27.0-31.0); Mean Corpuscular Volume 97.9 fL (80.0-94.0); Mean Platelet Volume 9.4 fL (7.4-10.4); Nucleated Red Blood Cells % 0 % (-); Platelet Count 300 10^3/uL (130-400); Red Cell Dist. Width 14.4 % (11.5-14.5); White Blood Cell Count 9.2 10^3/uL (4.8-10.8)
[2023-12-26 16:26] LABS: ALT (SGPT) 25 U/L (0-50); AST (SGOT) 31 U/L (17-59); Albumin 3.7 g/dl (3.5-5.0); Alkaline Phosphatase 141 U/L (38-126); Blood Urea Nitrogen 20 mg/dl (9-20); Calcium 8.8 mg/dl (8.4-10.2); Carbon Dioxide 29 mmol/L (22-30); Chloride 100 mmol/L (98-107); Estimated Creatinine Clearance 44 ml/min; Glucose 102 mg/dl (70-99); Sodium 137 mmol/L (135-145); Total Bilirubin 0.7 mg/dl (0.2-1.3); Total Protein 6.2 g/dl (6.3-8.2); eGFR > 60.00
[2023-12-26 16:36] LABS: NT-proBNP 12500 pg/ml; Troponin I 0.021 ng/ml
[2023-12-26] MEDS: LASIX 40 MG IV (16:57)
[2023-12-26 17:00] VITALS: BP 144/78
[2023-12-26 19:04] VITALS: BP 142/74
--- NOTE | 2023-12-26 19:49 | HPS.HSE ---
Family Physician
-
Family Physician: Padmini Mueller
Chief Complaint
-
swelling, lower back pain
History of Present Illness
78-year-old male past medical history of coronary artery disease, ischemic cardiomyopathy, chronic HFrEF, orthostatic hypotension, paroxysmal atrial fibrillation, ventricular tachycardia status post shock and ablation 2017, CKD 3, bladder cancer,
arthritis, hypothyroidism, BPH, presenting from [facility] dependent living for lower extremity edema for the past week and ongoing back discomfort.
Patient was recently admitted for pubic rami fracture on the left side. While in the hospital he was hypotensive and started on midodrine and Lasix, spironolactone and Entresto were held.
Patient recently had ultrasound for lower extremity edema which was negative for DVT. Swelling started a week ago and has continued despite resuming Aldactone and Lasix 3 days ago. He has gained 5 pounds in the past week. IV diuretic was
recommended by physician at [facility], repeat echo and more advanced imaging of the lumbar spine given ongoing back pain. He denies any chest pain or shortness of breath or dizziness.
Patient did not have lower back pain when he was admitted for pubic rami fracture previously. He suddenly developed right lower back pain a week ago which he thinks from ambulating too quickly. He denies any new falls or trauma. He has been
taking Tylenol and lidocaine patch without improvement in pain.
He denies smoking or alcohol use.
Medical History
Past Medical History
Past Medical History: Reports Other (coronary artery disease, ischemic cardiomyopathy, chronic HFrEF, orthostatic hypotension, paroxysmal atrial fibrillation, ventricular tachycardia status post shock and ablation 2017, CKD 3, bladder cancer,
arthritis, hypothyroidism, BPH)
Past Surgical History: Reports None
Social History
Tobacco: Non-smoker
Alcohol: None
Drug: None
Family History
Family History: Not pertinent
Allergies / Home Medications
Allergies reflects when Allergies were last updated in [facility].
Home Medications with original date entered in [facility]
Allergy/Medication List:
Allergies
Allergy/AdvReac Type Severity Reaction Status Date / Time
lisinopril Allergy Rash Verified 11/27/23 17:32
Home Medications
rosuvastatin 20 mg tablet (Crestor) 20 mg PO QPM High cholesterol 02/16/17
levothyroxine 50 mcg tablet 50 mcg PO DAILY AT 0700 Thyroid 12/06/21
nitroglycerin 0.4 mg sublingual tablet 0.4 mg sublingual [id number] PRN chest pain 12/06/21
amiodarone 200 mg tablet (Pacerone) 200 mg PO DAILY Heart disease/condition 12/09/21
aspirin 81 mg tablet,delayed release 81 mg PO QPM Blood clot prevention/tx 04/07/22
dutasteride 0.5 mg capsule 0.5 mg PO DAILY@0700 Urinary issue 04/07/22
spironolactone 25 mg tablet 12.5 mg PO DAILY Fluid retention/Swelling #1 tab 01/12/23
acetaminophen 325 mg tablet 650 mg PO Q4HPRN PRN mild pain/PALACIO/temp> 100.4F 14 days #30 tabs 11/30/23
midodrine 5 mg tablet 5 mg PO TID@0800,1300,1800 #90 tabs 11/30/23
carvedilol 6.25 mg tablet 6.25 mg PO BID 12/26/23
furosemide 20 mg tablet 20 mg PO DAILY 12/26/23
Review of Systems
-
History Source: Patient
A 12 point ROS was completed and negative except as noted: Yes
Constitutional: Reports No Symptoms
EENT: Reports No Symptoms
Respiratory: Reports No Symptoms
Cardiac: Reports No Symptoms
Abdomen/GI: Reports No Symptoms
: Reports No Symptoms
Musculoskeletal: Reports See HPI
Skin: Reports No Symptoms
Neurological: Reports No Symptoms
Endocrine: Reports No Symptoms
Hematologic/Lymphatic: Reports No Symptoms
Psych: Reports No Symptoms
Physical Exam
Vital Signs
Vital Signs
Temp Pulse Resp BP Pulse Ox
98.0 F 76 24 142/74 92
12/26/23 16:03 12/26/23 19:04 12/26/23 19:04 12/26/23 19:04 12/26/23 19:04
Physical Exam
General: Well Developed, Well Nourished and No Apparent Distress
HEENT: NormoCephalic, Moist mucous membranes and Atraumatic
Respiratory: Clear
Cardiac: S1/S2 and Regular Rhythm; No Murmur or Rub
GI: Soft, Non Tender, Non Distended and Normal Bowel Sounds; No Organomegaly
Rectal: Deferred by Provider
Musculoskeletal: No Clubbing, No Cyanosis and No Edema
Skin: No Rash
Neuro: Nonfocal/grossly intact
Laboratory Results
-
12/26/23 16:04
12/26/23 16:04
Laboratory Results
Total Bilirubin 0.7 mg/dl (0.2-1.3) 12/26/23 16:04
AST 31 U/L (17-59) 12/26/23 16:04
ALT 25 U/L (0-50) 12/26/23 16:04
Alkaline Phosphatase 141 U/L (38-126) H 12/26/23 16:04
Troponin I 0.021 ng/ml 12/26/23 16:04
Data Reviewed
-
Lab Data: Labs Reviewed by me
Old Records: Reviewed
Impression/Plan
-
IMPRESSION:
PLAN:
# Acute on chronic mild HFrEF exacerbation
-Chest x-ray shows mild pulmonary edema
-Cardiac BNP of 12,000
-Check I's and O's, daily weights
-40 IV Lasix daily
-Cardiology consulted
# Acute fracture of the left transverse process of L5 with minimal displacement
# Acute fracture of the sacrum at S2-S3, acute nondisplaced fracture bilateral sacral ala
-Tylenol for pain
-Lidocaine patch
-Tramadol
-Dilaudid for severe pain
-PT/OT
Coronary artery disease
-Continue aspirin, statin
Ischemic cardiomyopathy/chronic HFrEF
-Continue Coreg
-Continue spironolactone
-Entresto held since last admission
Orthostatic hypotension
-Continue midodrine
Paroxysmal atrial fibrillation
Ventricular tachycardia status post shock/ablation in 2017
-Continue amiodarone
CKD 3
-Renal function at baseline
Bladder cancer
Arthritis
Hypothyroidism
-Continue levothyroxine
BPH
-Continue dutasteride
DNR/DNI
DVT prophylaxis�heparin
Cardiac diet
[2023-12-26 20:00] VITALS: BP 122/83
[2023-12-26] MEDS: ULTRAM 50 MG PO (20:11)
[2023-12-26 21:00] VITALS: BP 155/97
[2023-12-27] VITALS (10 sets, daily range): BP systolic 99–154; BP diastolic 53–84; PULSE 56–62; O2SAT 97; BMI 24.1
[2023-12-27] MEDS: COREG 6.25 MG PO ×3 (00:52→20:44)
[2023-12-27] MEDS: HEPARIN 5000 UNITS SC ×3 (00:53→20:44)
--- NOTE | 2023-12-27 01:13 | PTCARENOTE ---
Pt admit from ED via stretcher. Assisted into bed and made comfortable. Denies pain when just laying but does have pain with movement. Placed on monitor-AV paced. Assessment as charted.
[2023-12-27] MEDS: SYNTHROID 50 MCG PO (05:58)
[2023-12-27] MEDS: PROSCAR 5 MG PO (05:58)
[2023-12-27 08:39] LABS: % Basophils 0.9 % (0-2); % Eosinophils 2.6 % (0-6); % Immature Granulocytes 0.6 % (0-0.5); % Lymphocytes 11.3 % (20.5-51.1); % Monocytes 9.4 % (1.7-9.3); % Neutrophils 75.2 % (42.2-75.2); Absolute Basophils 0.1 10^3/uL (0-0.2); Absolute Eosinophils 0.2 10^3/uL (0-0.7); Absolute Immature Granulocytes 0.1 10^3/uL (0-0.05); Absolute Monocytes 0.8 10^3/uL (0.1-0.6); Absolute Neutrophils 6.8 10^3/uL (1.4-6.5); Hematocrit 37.1 % (39.0-52.0); Hemoglobin 12.6 g/dL (13.0-18.0); Mean Corpuscular Hgb 32.4 pg (27.0-31.0); Mean Corpuscular Volume 95.4 fL (80.0-94.0); Mean Platelet Volume 9.2 fL (7.4-10.4); Nucleated Red Blood Cells % 0 % (-); Platelet Count 277 10^3/uL (130-400); Red Blood Cell Count 3.89 10^6/uL (4.70-6.10); Red Cell Dist. Width 14.2 % (11.5-14.5)
[2023-12-27 09:05] LABS: ALT (SGPT) 24 U/L (0-50); AST (SGOT) 29 U/L (17-59); Albumin 3.4 g/dl (3.5-5.0); Alkaline Phosphatase 145 U/L (38-126); Blood Urea Nitrogen 18 mg/dl (9-20); Calcium 8.8 mg/dl (8.4-10.2); Carbon Dioxide 28 mmol/L (22-30); Chloride 104 mmol/L (98-107); Estimated Creatinine Clearance 44 ml/min; Glucose 89 mg/dl (70-99); Magnesium 2.3 mg/dl (1.6-2.3); Potassium 3.7 mmol/L (3.5-5.1); Sodium 137 mmol/L (135-145); Total Bilirubin 0.9 mg/dl (0.2-1.3); Total Protein 5.8 g/dl (6.3-8.2); eGFR > 60.00
[2023-12-27] MEDS: ALDACTONE 12.5 MG PO (09:17)
[2023-12-27] MEDS: LASIX 40 MG IV (09:21)
[2023-12-27] MEDS: LIDOCAINE 4% PATCH 1 PATCH TOPICAL (09:22)
[2023-12-27] MEDS: PACERONE 200 MG PO (09:22)
[2023-12-27] MEDS: ProAmatine 5 MG PO ×2 (09:23→14:13)
--- NOTE | 2023-12-27 09:54 | CON.CAR ---
Addendum entered and electronically signed by Sina Fletcher MD 12/27/23 13:25:
I saw and examined the patient.
The Knitted Garment Finisher's note was reviewed and I agree with the note.
Comment:
GEN: No distress, awake, Ox3
HEENT: supple, anicteric, mmm
LUNGS: scatt rhonchi
CV: Reg, S1/S2, 1/6 syst LSB, S3+
ABD: soft, BS+, NT/ND
EXT: +1 edema
NEURO: Gross non-focal
SKIN: No rash
Plan:
He has a past medical history of ischemic cardiomyopathy with EF 25 to 30% status post BiV ICD, paroxysmal atrial fibrillation, fall and orthostasis. 1 month ago he fell and had a left inferior pubic ramus fracture. At that time his Lasix,
Aldactone and Entresto were placed on hold. He did temporarily require midodrine. He was discharged to rehab. Since then he has noticed increased fatigue, weight gain, and shortness of breath. He was then sent to the emergency room and was found
to have an elevated proBNP of 12,000. Chest x-ray suggestive of pulmonary edema.
Restart Lasix 40 mg IV daily. Continue carvedilol. Okay to continue low-dose Aldactone but would hold Entresto for now. Can consider adding midodrine as needed. Creatinine 1.2.
Will need rehab after this admission.
Remains AV paced. Continue amiodarone. Will review records regarding anticoagulation. Does have a recent fall.
Original Note:
Consultation
Consultation Request
Date/Time Consultation Performed: 12/27/23
Requesting Provider: Dr. Fuentes
Performing Provider: Ritu Angeles PA-C for Dr. Fletcher
Reason for Consultation: CHF
Medical History
-
Chief Complaint: LE edema
History of Present Illness:
Patient is an 78-year-old male with past medical history of inferior wall ID [id number], ischemic cardiomyopathy with EF 25 to 30% status post Medtronic BiV ICD 2012, paroxysmal atrial fibrillation, NSVT status post VT ablation in 2017, orthostasis. He
fell on 11/28/2023 resulting in admission with finding of left inferior pubic ramus fracture. During that admission he was also noted to be orthostatic and his Lasix, Aldactone, Entresto was placed on hold and temporarily required midodrine. He was
discharged to rehab. While there they attempted to restart some of his medications due to edema with some improvement. Dosages were then decreased and he was discharged to home. Now with worsening edema again as well as back pain, and referred to
ER yesterday by PCP. ProBNP highest it has ever been at 12,500. CXR with evidence of pulm congestion.
PMH:
Orthostasis/hypotension
Inferior pubic ramus fracture post fall 11/2023
ICM, EF 25-30%
Chronic HFrEF
CAD s/p [id number]
Medtronic BI-V/ICD implanted after out of hospital cardiac arrest 12/2012
h/o large area of calcification of the left ventricle, extending from the inferior wall out to the infero-apex by cath 12/11/12
h/o largely recovered anoxic encephalopathy from 2012
LBBB (QRS duration is 176 ms)
Paroxysmal Afib
HTN
Hyperlipidemia
Past Medical History
Past Medical History: Other (in HPI)
Social History
Tobacco: Non-Smoker
Alcohol: None
Personal:
Living: With Family
Employment: Retired
Family History
Family History: Reviewed & Not Pertinent
Allergies / Home Medications
Allergy/AdvReac Type Severity Reaction Status Date / Time
lisinopril Allergy Rash Verified 11/27/23 17:32
Medication Instructions Recorded Confirmed Type
rosuvastatin 20 mg tablet (Crestor) 20 mg PO QPM High cholesterol 02/16/17 12/26/23 History
levothyroxine 50 mcg tablet 50 mcg PO DAILY AT 0700 Thyroid 12/06/21 12/26/23 History
nitroglycerin 0.4 mg sublingual 0.4 mg sublingual [id number] PRN 12/06/21 12/26/23 History
tablet chest pain
amiodarone 200 mg tablet (Pacerone) 200 mg PO DAILY Heart 12/09/21 12/26/23 History
disease/condition
aspirin 81 mg tablet,delayed 81 mg PO QPM Blood clot 04/07/22 12/26/23 History
release prevention/tx
dutasteride 0.5 mg capsule 0.5 mg PO DAILY@0700 Urinary issue 04/07/22 12/26/23 History
spironolactone 25 mg tablet 12.5 mg PO DAILY Fluid 01/12/23 12/26/23 Rx
retention/Swelling #1 tab
acetaminophen 325 mg tablet 650 mg PO Q4HPRN PRN mild 11/30/23 12/26/23 Rx
pain/PALACIO/temp> 100.4F 14 days #30
tabs
midodrine 5 mg tablet 5 mg PO TID@0800,1300,1800 #90 tabs 11/30/23 12/26/23 Rx
carvedilol 6.25 mg tablet 6.25 mg PO BID Heart Failure 12/26/23 12/26/23 History
furosemide 20 mg tablet 20 mg PO DAILY Fluid 12/26/23 12/26/23 History
Retention/Swelling
Review of Systems
-
History Source: Patient
All other systems: Negative unless noted
Physical Exam
Vital Signs
Temp Pulse Resp BP Pulse Ox
97.8 F 60 18 134/74 95
12/27/23 07:00 12/27/23 09:18 12/27/23 07:00 12/27/23 09:18 12/27/23 07:00
Lab Results
12/27/23 08:24
12/27/23 08:24
Troponin I 0.021 ng/ml 12/26/23 16:04
Koy-R-[id number] Pept 56017 pg/ml 12/26/23 16:04
Physical Exam
General: No Apparent Distress, Comfortable and Other (on supp O2)
HEENT: Normocephalic, Anicteric and Moist Mucous Membranes
Respiratory: Clear (anterolaterally)
Cardiac: S1/S2 and Regular Rhythm
GI: Soft, Non Tender, Non Distended and Normal Bowel Sounds
Musculoskeletal: No Clubbing, No Cyanosis and Edema (2+ of B/L LE)
Skin: Warm and Dry
Neuro: AO x 3
Impression / Plan
-
Primary Depot Manager: Dr. Noland
Assessment:
Presentation with LE edema
Acute on chronic HFrEF
Acute L5 fracture, sacral fracture
Orthostasis/hypotension
Inferior pubic ramus fracture post fall 11/2023
CAD s/p IWMI 1985
ICM, EF 25-30%
Medtronic BI-V/ICD implanted after out of hospital cardiac arrest 12/2012
h/o large area of calcification of the left ventricle, extending from the inferior wall out to the infero-apex by cath 12/11/12
h/o largely recovered anoxic encephalopathy from 2012
LBBB (QRS duration is 176 ms)
Paroxysmal Afib, chronic amiodarone therapy
CKD
HTN
Hyperlipidemia
Hypothyroidism
History of bladder cancer s/p tumor resection 2021
BPH
DNR code status
ECHO 06/2022: EF 25-30%, global hypokinesis, inferolateral and inferior akinesis, mild , mild MR
Plan:
-Patient presents back to with back pain and worsening LE edema.
-with acute lumbosacral fractures by imaging. continue pain mgmt/PT/OT per primary service
-also with evidence of acute decompensated HFrEF. proBNP 46495.
-continue 40mg IV lasix. prior to admission was taking 20mg po daily. Cr stable at 1.2
-GDMT of CM was recently decreased/held due to orthostasis and hypotension. continue coreg, aldactone. OP entresto remains on hold
-currently ordered midodrine TID, attempt to change to PRN as BPs appear improved
-will have CM assess cost to patient of SGLT2 inhibitor
-repeat echo, last from 06/2022 reviewed as above
-CHF education
-in av paced rhythm on review of tele. continue amiodarone. interrogate device in setting of recent fall
-trop 0.021, no cp
Data Reviewed
-
EKG: Tracing Personally Visualized and interpreted
Radiology: Report Reviewed by me
Medical Tests (Nuc Med, Echo etc): Report Reviewed by me
Labs: Labs Reviewed by me
Old Records: Reviewed
[2023-12-27] MEDS: ULTRAM 50 MG PO (10:40)
--- NOTE | 2023-12-27 11:35 | CM ---
Addendum entered by Diana Rothman 12/27/23 13:33:
Per [facility] pharmacy, Farxiga 10 mg will be $47 per month.
Original Note:
Patient seen bedside.
IA completed.
Patient lives alone independent living at [facility].
Patient ambulates with RW.
Patient has not driven recently.
Patient current with VN, not sure which VN.
Patient would prefer home with VN, however will go to skilled rehab at [facility] if needed.
PT recommending skilled rehab.
Referral to [facility].
Pharmacy: [facility]
Dr Mueller
Plan:skilled rehab. Needs insurance auth.
--- NOTE | 2023-12-27 11:46 | W.PN.HOSP.TC ---
Today's Communication/Plan
-
see outlined plan
Assessment / Plan
Assessment / Plan
Assessment:
Acute on chronic mild HFrEF exacerbation
- continue IV diuretics - requires intensive monitoring, I/Os, weights
- [facility] cardiology following
- noted recently resumed back on PO Lasix + aldactone after they were held last month for hypotension
Acute fracture of the left transverse process of L5 with minimal displacement
Acute fracture of the sacrum at S2-S3, acute nondisplaced fracture bilateral sacral ala
- continue Tramadol, Tylenol, Lidocaine
- PT/OT - SNF recommended
Coronary artery disease
- continue aspirin, statin
Ischemic cardiomyopathy/chronic HFrEF
- continue Coreg
- continue spironolactone
- Entresto held since last admission
Orthostatic hypotension
- continue midodrine
Paroxysmal atrial fibrillation
- continue Amiodarone/Coreg
Ventricular tachycardia status post shock/ablation in 2017
- continue amiodarone
CKD 3
- renal function at baseline
Bladder cancer
Arthritis
Hypothyroidism
- continue levothyroxine
BPH
- continue dutasteride
DVT ppx: Heparin
Code: DNR/DNI
Anticipated Discharge: > 48 hours
Subjective/Interval History
-
Date of Service: December 27, 2023
no back pain
no sob or chest pain
Objective Data
-
Labs:
Laboratory Results
12/27/23
08:24
WBC 9.0
Hgb 12.6 L
Hct 37.1 L
Plt Count 277
Sodium 137
Potassium 3.7
Chloride 104
Carbon Dioxide 28
BUN 18
Creatinine 1.2
Glucose 89
Calcium 8.8
Total Bilirubin 0.9
AST 29
ALT 24
Alkaline Phosphatase 145 H
Vital Signs:
Vital Signs
Temp Pulse Resp BP Pulse Ox
97.4 F 62 18 152/76 96
12/27/23 10:42 12/27/23 10:42 12/27/23 10:42 12/27/23 10:42 12/27/23 10:42
I&O
12/26/23 12/27/23 12/28/23
06:59 06:59 06:59
Output Total 200 / 200
Balance -200 / -200
Physical Exam
-
General: No Apparent Distress
HEENT: Normocephalic and Atraumatic
Respiratory: Negative Wheezes or Rales
Cardiac: Regular Rhythm and S1/S2
GI: Soft and Nontender
Genito-urinary: No Costovertebral Tender
Musculoskeletal: No Edema
Neuro: AO x 3
Hematologic / Lymphatic: No Lymphadenopathy
Psych: Calm
Data Reviewed
-
Total Time Spent with Patient (in minutes): 51
Labs: Labs Reviewed by me
--- NOTE | 2023-12-27 14:06 | W.CARD.DEVCH ---
Cardiac Device Check
-
Device: Implanted Cardioverter-Defibrillator
Clinical Support Specialist: [employer]
The patient's device was interrogated with assistance of the device banking representative. The device had normal function. No arrhythmias since 09/2023. optivol noted to be elevated consistent with acute CHF. He has known stable elevated LV threshold.
--- NOTE | 2023-12-27 16:47 | PTCARENOTE ---
Ultram given 5/10 low back and sacral pain with good relief. Patient OOB with assist and walker. Patient needs to sit on 2 pillows when in chair for comfort. Patient tolerated sitting in chair for 2 hours. Patient's BP when standing 99/53, sitting
in chair 105/57 lying 149/74. Patient is asymptomatic while sitting in chair, but a bit dizzy when standing. Midodrine given. Daughter at bedside.
[2023-12-27] MEDS: CRESTOR 20 MG PO (17:41)
[2023-12-27] MEDS: ASPIR LOW (ENTERIC COATED) 81 MG PO (17:41)
[2023-12-28] VITALS (7 sets, daily range): BP systolic 87–145; BP diastolic 41–82; PULSE 61; BMI 24.1
[2023-12-28] MEDS: SYNTHROID 50 MCG PO (06:06)
[2023-12-28] MEDS: PROSCAR 5 MG PO (06:06)
[2023-12-28 09:01] LABS: Hematocrit 37.5 % (39.0-52.0); Hemoglobin 12.3 g/dL (13.0-18.0); Mean Corp Hgb Conc. 32.8 g/dL (33.0-37.0); Mean Corpuscular Hgb 32.1 pg (27.0-31.0); Mean Corpuscular Volume 97.9 fL (80.0-94.0); Mean Platelet Volume 9.6 fL (7.4-10.4); Platelet Count 262 10^3/uL (130-400); Red Blood Cell Count 3.83 10^6/uL (4.70-6.10); White Blood Cell Count 7.8 10^3/uL (4.8-10.8)
[2023-12-28 09:12] LABS: Blood Urea Nitrogen 24 mg/dl (9-20); Calcium 8.5 mg/dl (8.4-10.2); Carbon Dioxide 32 mmol/L (22-30); Chloride 101 mmol/L (98-107); Estimated Creatinine Clearance 44 ml/min; Glucose 97 mg/dl (70-99); Magnesium 2.2 mg/dl (1.6-2.3); Potassium 3.6 mmol/L (3.5-5.1); Sodium 137 mmol/L (135-145); eGFR > 60.00
[2023-12-28] MEDS: LIDOCAINE 4% PATCH 1 PATCH TOPICAL (09:58)
[2023-12-28] MEDS: COREG 6.25 MG PO ×2 (10:00→21:31)
[2023-12-28] MEDS: PACERONE 200 MG PO (10:01)
[2023-12-28] MEDS: LASIX 40 MG IV (10:01)
[2023-12-28] MEDS: HEPARIN 5000 UNITS SC ×2 (10:02→21:32)
[2023-12-28] MEDS: ALDACTONE 12.5 MG PO (10:02)
[2023-12-28] MEDS: ULTRAM 50 MG PO (10:15)
--- NOTE | 2023-12-28 10:34 | W.PN.HOSP.TC ---
Today's Communication/Plan
-
continue IV Lasix
continue prn Midodrine
continue pain control
PT/OT
SNF placement
Assessment / Plan
Assessment / Plan
Assessment:
Acute on chronic mild HFrEF exacerbation
- continue IV diuretics - requires intensive monitoring, I/Os, weights
- [facility] cardiology following
- noted recently resumed back on PO Lasix + Aldactone after they were held last month for hypotension; now back on Aldactone
Acute fracture of the left transverse process of L5 with minimal displacement
Acute fracture of the sacrum at S2-S3, acute nondisplaced fracture bilateral sacral ala
- continue Tramadol, Tylenol, Lidocaine
- PT/OT - SNF recommended
Coronary artery disease
- continue aspirin, statin
Ischemic cardiomyopathy/chronic HFrEF
- continue Coreg
- continue spironolactone
- Entresto held since last admission
Orthostatic hypotension
- continue midodrine prn
Paroxysmal atrial fibrillation
- continue Amiodarone/Coreg
Ventricular tachycardia status post shock/ablation in 2017
- continue amiodarone
CKD 3
- renal function at baseline
Bladder cancer
Arthritis
Hypothyroidism
- continue levothyroxine
BPH
- continue dutasteride
DVT ppx: Heparin
Code: DNR/DNI
Anticipated Discharge: 24 - 48 hours
Subjective/Interval History
-
Date of Service: December 28, 2023
pain improving with lidocaine patch
weight is recorded as stable at 67kg but patient feels breathing improving
Objective Data
-
Labs:
Laboratory Results
12/28/23
08:33
WBC 7.8
Hgb 12.3 L
Hct 37.5 L
Plt Count 262
Sodium 137
Potassium 3.6
Chloride 101
Carbon Dioxide 32 H
BUN 24 H
Creatinine 1.2
Glucose 97
Calcium 8.5
Vital Signs:
Vital Signs
Temp Pulse Resp BP Pulse Ox
97.3 F 60 16 123/82 94
12/28/23 07:48 12/28/23 07:48 12/28/23 07:48 12/28/23 07:48 12/28/23 07:48
I&O
12/27/23 12/28/23 12/29/23
06:59 06:59 06:59
Intake Total 720 / 720
Output Total 200 / 200 750 / 750
Balance -200 / -200 -30 / -30
Physical Exam
-
General: No Apparent Distress
HEENT: Normocephalic and Atraumatic
Respiratory: Negative Wheezes or Rales
Cardiac: Regular Rhythm and S1/S2
GI: Soft
Genito-urinary: No Costovertebral Tender
Musculoskeletal: No Edema
Neuro: AO x 3
Psych: Calm
Data Reviewed
-
Total Time Spent with Patient (in minutes): 51
Labs: Labs Reviewed by me
--- NOTE | 2023-12-28 11:53 | W.PN.CARDCBS ---
Addendum entered and electronically signed by Sal Camejo MD 12/28/23 15:18:
I saw and examined the patient.
The Microbiology Lab Analyst's note was reviewed and I agree with the note.
Comment: Briefly, 78-year-old man past medical history of heart failure with reduced ejection fraction with severely reduced EF 20 to 25% who presents with worsening peripheral edema consistent with decompensated heart failure
Unfortunately due to chronic orthostasis medical therapy for heart failure is somewhat limited
Continue gentle IV diuresis
May benefit from SGLT2 inhibitor
Given orthostasis would reintroduce compression stockings and start as needed midodrine
Original Note:
Today's Communication / Plan
-
compression stockings
continue IV lasix
replete K
prn midodrine
echo
consider farxiga
PT/OT
Impression / Plan
-
Primary Egg Worker: Dr. Noland
Assessment:
Presentation with LE edema
Acute on chronic HFrEF
Acute L5 fracture, sacral fracture
Orthostasis/hypotension
Inferior pubic ramus fracture post fall 11/2023
CAD s/p IWMI 1985
ICM, EF 25-30%
[employer] BI-V/ICD implanted after out of hospital cardiac arrest 12/2012
h/o large area of calcification of the left ventricle, extending from the inferior wall out to the infero-apex by cath 12/11/12
h/o largely recovered anoxic encephalopathy from 2012
LBBB (QRS duration is 176 ms)
Paroxysmal Afib, chronic amiodarone therapy
CKD
HTN
Hyperlipidemia
Hypothyroidism
History of bladder cancer s/p tumor resection 2021
BPH
DNR code status
ECHO 06/2022: EF 25-30%, global hypokinesis, inferolateral and inferior akinesis, mild , mild MR
Plan:
-Patient presents back to with back pain and worsening LE edema.
-Patient reports improvement in breathing and lower extremity edema. Does not appear I&O or weights are accurate. Continue IV Lasix, consider transition to p.o. in next 24 to 48 hours. Was on p.o. Lasix 20 mg daily prior to admission. Creatinine
remained stable at 1.2
-Replete K
-Orthostatic vital signs from 12/26 positive, however patient reports being asymptomatic. Continue midodrine as needed. Patient states he does normally wear compression stockings at home which he is not currently wearing, will order. Consider for
abdominal binder
-Attempt to continue Coreg and Aldactone. Outpatient Entresto remains on hold at this time
-Farxiga noted to be $47 per month for patient, consider adding
-repeat echo, last from 06/2022 reviewed as above
-CHF education
-in av paced rhythm on review of tele. continue amiodarone.
-with acute lumbosacral fractures by imaging. continue pain mgmt/PT/OT per primary service
-d/w hospitalist, nursing
Progress Note - Egg Worker
Subjective
Date of Service: December 28, 2023
Reports improvement in lower extremity edema and breathing. Denies dizziness/lightheadedness
Objective
Labs:
12/28/23 08:33
12/28/23 08:33
Labs
Hgb 12.3 g/dL (13.0-18.0) L 12/28/23 08:33
Hct 37.5 % (39.0-52.0) L 12/28/23 08:33
Plt Count 262 10^3/uL (130-400) 12/28/23 08:33
Sodium 137 mmol/L (135-145) 12/28/23 08:33
Potassium 3.6 mmol/L (3.5-5.1) 12/28/23 08:33
BUN 24 mg/dl (9-20) H 12/28/23 08:33
Creatinine 1.2 mg/dL (0.7-1.3) 12/28/23 08:33
Glucose 97 mg/dl (70-99) 12/28/23 08:33
Troponins
12/26/23
16:04
Troponin I 0.021
Vital Signs and I&O:
Vital Signs
Temp Pulse Resp BP Pulse Ox
97.3 F 62 16 103/41 97
12/28/23 11:08 12/28/23 11:08 12/28/23 11:08 12/28/23 11:08 12/28/23 11:08
Vital Signs
Temp Pulse Resp BP Pulse Ox
97.3 F 62 16 103/41 97
12/28/23 11:08 12/28/23 11:08 12/28/23 11:08 12/28/23 11:08 12/28/23 11:08
Intake & Output
12/26/23 12/27/23 12/28/23 12/29/23
07:59 07:59 07:59 07:59
Intake Total 720 / 720
Output Total 200 / 200 750 / 750
Balance -200 / -200 -30 / -30
Physical Exam
Physical Exam
GEN: No distress, awake, alert, oriented x3
HEENT: supple, anicteric, mmm, eomi
LUNGS: CTA B/L, no wheezes/rales
CV: Reg, S1/S2, no murmur
ABD: soft, BS+, NT/ND
EXT: No cyanosis, clubbing. 1+ edema of B/L LE
NEURO: Gross non-focal
SKIN: Warm, pink, dry. No rash
[2023-12-28] MEDS: KCL 20 MEQ PO (12:24)
[2023-12-28] MEDS: ProAmatine 5 MG PO (14:51)
--- NOTE | 2023-12-28 16:38 | CM ---
Patient seen bedside.
Patient really wants to go home with VN.
Per [place] at the [facility], no beds available.
Caregiver list provided to patient as he would consider home with private care givers.
CM asked patient if he discussed with his family and he said he gets to make the decision.
Referral to [facility].
Plan: home with possible private care givers and [facility] VN (current with them), vs skilled rehab if bed opens at the [facility].
[2023-12-28] MEDS: CRESTOR 20 MG PO (16:51)
[2023-12-28] MEDS: ASPIR LOW (ENTERIC COATED) 81 MG PO (16:51)
[2023-12-29 03:00] VITALS: BP 122/62
[2023-12-29 05:53] VITALS: BMI 24.1
[2023-12-29] MEDS: SYNTHROID 50 MCG PO (06:18)
[2023-12-29] MEDS: PROSCAR 5 MG PO (06:18)
[2023-12-29 07:34] VITALS: BP 140/74
[2023-12-29 08:10] LABS: Hematocrit 37.1 % (39.0-52.0); Hemoglobin 12.4 g/dL (13.0-18.0); Mean Corp Hgb Conc. 33.4 g/dL (33.0-37.0); Mean Corpuscular Hgb 32.5 pg (27.0-31.0); Mean Corpuscular Volume 97.4 fL (80.0-94.0); Mean Platelet Volume 9.6 fL (7.4-10.4); Platelet Count 263 10^3/uL (130-400); Red Blood Cell Count 3.81 10^6/uL (4.70-6.10); Red Cell Dist. Width 14.2 % (11.5-14.5); White Blood Cell Count 7.1 10^3/uL (4.8-10.8)
[2023-12-29] MEDS: LASIX 40 MG IV (08:25)
[2023-12-29] MEDS: PACERONE 200 MG PO (08:26)
[2023-12-29] MEDS: HEPARIN 5000 UNITS SC (08:26)
[2023-12-29] MEDS: ALDACTONE 12.5 MG PO (08:26)
[2023-12-29] MEDS: LIDOCAINE 4% PATCH 1 PATCH TOPICAL (08:26)
[2023-12-29] MEDS: COREG 6.25 MG PO (08:26)
[2023-12-29 08:38] LABS: Blood Urea Nitrogen 34 mg/dl (9-20); Calcium 8.6 mg/dl (8.4-10.2); Carbon Dioxide 33 mmol/L (22-30); Chloride 100 mmol/L (98-107); Estimated Creatinine Clearance 44 ml/min; Glucose 93 mg/dl (70-99); Sodium 139 mmol/L (135-145); eGFR > 60.00
--- NOTE | 2023-12-29 10:38 | W.PN.HOSP.TC ---
Today's Communication/Plan
-
dc home VN
Assessment / Plan
Assessment / Plan
Assessment:
Acute on chronic mild HFrEF exacerbation
- dc on Lasix 20mg daily - repeat BMP in 1 week
- [facility] cardiology f/u outpatient
- continue Aldactone
Acute fracture of the left transverse process of L5 with minimal displacement
Acute fracture of the sacrum at S2-S3, acute nondisplaced fracture bilateral sacral ala
- continue Tylenol, Lidocaine
- PT/OT - SNF recommended but patient opting VN/Home
Coronary artery disease
- continue aspirin, statin
Ischemic cardiomyopathy/chronic HFrEF
- continue Coreg
- continue spironolactone
- Entresto held since last admission
Orthostatic hypotension
- continue midodrine prn
Paroxysmal atrial fibrillation
- continue Amiodarone/Coreg
Ventricular tachycardia status post shock/ablation in 2017
- continue amiodarone
CKD 3
- renal function at baseline
Bladder cancer
Arthritis
Hypothyroidism
- continue levothyroxine
BPH
- continue dutasteride
DVT ppx: Heparin
Code: DNR/DNI
More than 30 minutes spent in discharge including
Final examination of the patient
Summarizing hospital stay
Instructions for continuing care to all relevant caregivers
Preparation of discharge records, prescriptions, and referral forms
Total time spent (in minutes): 41
Anticipated Discharge: Today
Subjective/Interval History
-
Date of Service: December 29, 2023
feels well no complaints
Objective Data
-
Labs:
Laboratory Results
12/29/23
07:12
WBC 7.1
Hgb 12.4 L
Hct 37.1 L
Plt Count 263
Sodium 139
Potassium 4.0
Chloride 100
Carbon Dioxide 33 H
BUN 34 H
Creatinine 1.2
Glucose 93
Calcium 8.6
Vital Signs:
Vital Signs
Temp Pulse Resp BP Pulse Ox
97.8 F 62 16 140/74 94
12/29/23 07:34 12/29/23 07:34 12/29/23 07:34 12/29/23 07:34 12/29/23 07:34
I&O
12/28/23 12/29/23 12/30/23
06:59 06:59 06:59
Intake Total 720 / 720 600 / 600
Output Total 750 / 750 600 / 600
Balance -30 / -30 0 / 0
Physical Exam
-
General: No Apparent Distress
HEENT: Normocephalic and Atraumatic
Respiratory: Negative Wheezes
Cardiac: Regular Rhythm and S1/S2
GI: Soft
Genito-urinary: No Costovertebral Tender
Musculoskeletal: No Edema
Neuro: AO x 3
Hematologic / Lymphatic: No Lymphadenopathy
Psych: Calm
Data Reviewed
-
Total Time Spent with Patient (in minutes): 41
Labs: Labs Reviewed by me
[2023-12-29 10:40] VITALS: BP 110/90; BP 117/63; BP 127/65; PULSE 63; PULSE 65
--- NOTE | 2023-12-29 10:53 | W.DS.TRANS ---
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
-
Discharge Instructions:
Sleep Apnea Risk Intermediate
Discharge Diagnosis/Procedures acute CHF, orthostatic hypotension, lumbar-
sacral fracture
Diet Low Cholesterol
Activity As tolerated
Bathing Restrictions None
Other Services VN,PT,OT
Specialty Instructions Weigh Daily
Instructions: *[facility] Heart Failure Instructions
Stand-Alone Forms:
Changes to Home Medications: No
Discharge Medications:
DC Medications w/original date entered in [employer]
rosuvastatin 20 mg tablet (Crestor) 20 mg PO QPM High cholesterol 02/16/17
levothyroxine 50 mcg tablet 50 mcg PO DAILY AT 0700 Thyroid 12/06/21
nitroglycerin 0.4 mg sublingual tablet 0.4 mg sublingual [id number] PRN chest pain 12/06/21
amiodarone 200 mg tablet (Pacerone) 200 mg PO DAILY Heart disease/condition 12/09/21
aspirin 81 mg tablet,delayed release 81 mg PO QPM Blood clot prevention/tx 04/07/22
dutasteride 0.5 mg capsule 0.5 mg PO DAILY@0700 Urinary issue 04/07/22
acetaminophen 325 mg tablet 650 mg PO Q4HPRN PRN mild pain/PALACIO/temp> 100.4F 14 days #30 tabs 11/30/23
carvedilol 6.25 mg tablet 6.25 mg PO BID Heart Failure #60 tabs 12/29/23
furosemide 20 mg tablet 20 mg PO DAILY Fluid Retention/Swelling #30 tabs 12/29/23
lidocaine 4 % topical patch 1 patch topical DAILY #30 ea 12/29/23
midodrine 5 mg tablet 5 mg PO TID@0800,1300,1800 PRN hypotension #90 tabs 12/29/23
spironolactone 25 mg tablet 12.5 mg PO DAILY Fluid retention/Swelling #30 tabs 12/29/23
Home Medication Changes
Pending Results: No
Total time spent discharging patient (in min): 45
[2023-12-29] MEDS: ProAmatine 5 MG PO (11:23)
[2023-12-29 11:34] VITALS: BP 97/57
--- NOTE | 2023-12-29 11:58 | W.PN.CARDCBS ---
Today's Communication / Plan
-
Stable cardiology status for discharge
Discharge on Lasix 20 mg daily
Add Farxiga
Impression / Plan
-
Primary Silverware Assembler: Dr. Noland
Assessment:
Presentation with LE edema
Acute on chronic HFrEF
Acute L5 fracture, sacral fracture
Orthostasis/hypotension
Mild to moderate aortic stenosis December 2023
Inferior pubic ramus fracture post fall 11/2023
CAD s/p IWMI 1985
ICM, EF 25-30%
[employer] BI-V/ICD implanted after out of hospital cardiac arrest 12/2012
h/o large area of calcification of the left ventricle, extending from the inferior wall out to the infero-apex by cath 12/11/12
h/o largely recovered anoxic encephalopathy from 2012
LBBB (QRS duration is 176 ms)
Paroxysmal Afib, chronic amiodarone therapy
CKD
HTN
Hyperlipidemia
Hypothyroidism
History of bladder cancer s/p tumor resection 2021
BPH
DNR code status
Echocardiogram 12/28/2023: Ejection fraction 20 to 25%, global hypokinesis with akinesis of inferior and inferolateral roper, reduced RV systolic function, mild to moderate aortic stenosis with mean gradient of 18 mmHg and aortic valve area 1.5 cm�
ECHO 06/2022: EF 25-30%, global hypokinesis, inferolateral and inferior akinesis, mild , mild MR
Plan:
Stable cardiology status for discharge
Weight has not changed much with IV Lasix but weight at home normally is 154 pounds and is 149 pounds this morning
Will discharge on Lasix 20 mg daily. Of note medications for cardiomyopathy are limited due to hypotension
Continue midodrine as needed on discharge.
Continue Coreg and Aldactone. Outpatient Entresto remains on hold at this time
will add Farxiga noted to be $47 per month for patient
Discussed with primary service
Progress Note - Silverware Assembler
Subjective
Date of Service: December 29, 2023
No shortness of breath. Edema has resolved.
Objective
Labs:
12/29/23 07:12
12/29/23 07:12
Labs
Hgb 12.4 g/dL (13.0-18.0) L 12/29/23 07:12
Hct 37.1 % (39.0-52.0) L 12/29/23 07:12
Plt Count 263 10^3/uL (130-400) 12/29/23 07:12
Sodium 139 mmol/L (135-145) 12/29/23 07:12
Potassium 4.0 mmol/L (3.5-5.1) 12/29/23 07:12
BUN 34 mg/dl (9-20) H 12/29/23 07:12
Creatinine 1.2 mg/dL (0.7-1.3) 12/29/23 07:12
Glucose 93 mg/dl (70-99) 12/29/23 07:12
Troponins
12/26/23
16:04
Troponin I 0.021
Vital Signs and I&O:
Vital Signs
Temp Pulse Resp BP Pulse Ox
97.9 F 60 20 97/57 99
12/29/23 11:34 12/29/23 11:34 12/29/23 11:34 12/29/23 11:34 12/29/23 11:34
Vital Signs
Temp Pulse Resp BP Pulse Ox
97.9 F 60 20 97/57 99
12/29/23 11:34 12/29/23 11:34 12/29/23 11:34 12/29/23 11:34 12/29/23 11:34
Intake & Output
12/27/23 12/28/23 12/29/23 12/30/23
06:59 06:59 06:59 06:59
Intake Total 720 / 720 600 / 600
Output Total 200 / 200 750 / 750 600 / 600
Balance -200 / -200 -30 / -30 0 / 0
Physical Exam
Physical Exam
General: Well developed, well nourished in NAD.
Neck: Supple, no JVD, HJR, carotids +2 B/L, no bruits bilaterally.
Heart: Non displaced PMI, RRR, no murmurs, No S3, S4, no rubs.
Lungs: Clear to auscultation bilaterally, no wheeze, rhonchi, rubs bilaterally,
normal expiratory phase.
Extremities: No clubbing, cyanosis or edema bilaterally.
Neuro: Grossly nonfocal, awake, alert and oriented x3.
[2023-12-29] MEDS: FARXIGA 10 MG PO (12:22)
[2023-12-29] MEDS: TYLENOL 650 MG PO (12:59)
--- NOTE | 2023-12-29 18:01 | CM ---
patient's daughter called and wanted to know if patient discharging today.dc order in,daughter will transport patient back to [facility].daughter gave permission to sign imm letter.
--- NOTE | 2024-01-01 10:27 | W.HF.CON ---
Heart Failure
- LV Function
Left ventricular function study result: LV Ejection fraction </= 35%
Ejection Fraction Percentage: 20-25
- ARNI
Patient already on ARNI: No
Heart Failure ARNI Contraindication: Hypotension
- ACEI/ARB
Patient already on ACEI/ARB: No
Heart Failure ACEI/ARB Contraindication: Hypotension
- Beta Michael
Patient already on Evidence Based Beta Michael: Yes
- Mineralocorticord Receptor Antagonist
Patient already on MRA: Yes
- SGLT-2 Inhibitor
Patient already on SGLT-2 Inhibitor: Yes
- Afib Anticoagulation
Patient already on Anticoagulation for Afib: No
Heart Failure Afib Anticoagulation Contraindication: History of Falls
- NYHA CHF Classification
NYHA CHF Classification Level: Class III - Symptoms w/ min exertion, interferes w/ nml daily activity
- ACC/AHA Stage
ACC/AHA Stage: Stage C: Symptomatic Heart Failure
== END 2023-12-29 13:52 | disposition home health service (06) | DRG 291 ==
LOC: 4 WEST ACU 20:01
PROVIDERS: ADMITTING PHYSICIAN Hospitalist; ATTENDING PHYSICIAN Internal Medicine; CONSULT PHYSICIAN Internal Medicine Cardiovascular Disease; EMERGENCY PHYSICIAN Emergency Medicine; FAMILY PHYSICIAN Internal Medicine
PROC: 4B02XTZ Measurement of Cardiac Defibrillator, External Approach (ICD-10-PCS; 2023-12-27)
DX: I13.0 Hypertensive heart and chronic kidney disease with heart failure and stage 1 through stage 4 chronic kidney disease, or unspecified chronic kidney disease (principal); I50.23 Acute on chronic systolic (congestive) heart failure; S32.10XA Unspecified fracture of sacrum, initial encounter for closed fracture; I47.20 Ventricular tachycardia, unspecified; I25.10 Atherosclerotic heart disease of native coronary artery without angina pectoris; Z79.82 Long term (current) use of aspirin; I25.5 Ischemic cardiomyopathy; I95.1 Orthostatic hypotension; I48.0 Paroxysmal atrial fibrillation; C67.9 Malignant neoplasm of bladder, unspecified; M19.90 Unspecified osteoarthritis, unspecified site; E03.9 Hypothyroidism, unspecified; N40.0 Benign prostatic hyperplasia without lower urinary tract symptoms; Z66 Do not resuscitate; N18.32 Chronic kidney disease, stage 3b; E78.00 Pure hypercholesterolemia, unspecified
CPT/HCPCS: 71045; 72131; 80048; 80053; 83735; 83880; 84484; 85025; 85027; 93005; 93306; 96374; 97116; 97163; 97167; 97530; 99285

== ENCOUNTER → 2024-03-04 12:38 | Outpatient (REF) | payer OTHER, SELFPAY | LOC: HWRAD 12:38 | PROVIDERS: ATTENDING PHYSICIAN Internal Medicine | DX: K59.00 Constipation, unspecified (principal) | CPT/HCPCS: 74022 ==

== ENCOUNTER 2024-03-05 10:10 | Emergency (ER) | payer OTHER, SELFPAY ==
[2024-03-05 10:18] VITALS: BP 88/56
--- NOTE | 2024-03-05 11:17 | ED.GENMED ---
History of Present Illness
<Rebecca Redd PA-C - Last Filed: 03/05/24 13:49>
General
Chief Complaint: Bowel Problem
Source: patient
Exam Limitations: none
Time Seen by Provider: 03/05/24 11:17
Nursing documentation reviewed up to this point in time: agreed with
Travel History
Have you had any contact with someone who has COVID-19?: No
Do you have any symptoms of coronavirus? Fever > 100 degrees, chills, cough, shortness of breath, sore throat, loss of taste or smell, muscle aches, or headache?: No
History of Present Illness
History of Present Illness:
This is a 78 y/o male with a PMH of HTN, CKD, BPH, CAD, presenting to the ER with constipation x7 days. Patient states that the last time he had a normal bowel movement was 7 days ago. Patient states that he normally takes MiraLAX when this
happened and his constipation will resolve. Patient states he normally will have a bowel movement every round every other day. Patient has been trying miralax every day without relief. Patient has also been trying 2 different laxatives without
relief but he does not recall what these are. He has not used any suppositories. His rehab facility recommended evaluation in the emergency department. At the facility, they did a chest x-ray yesterday which did show a moderate volume of stool.
Patient denies fevers or chills, abdominal pain, nausea, vomiting, rectal bleeding, dizziness, lightheadedness.
Past History
<Rebecca Redd PA-C - Last Filed: 03/05/24 13:49>
Past History
ED Past Medical History: Arrthythmia (Atrial fib), CAD, Cancer (Bladder CA, Skin CA), CHF, HTN, Hypercholesterolemia, [place], Hypothyroidism and Other (Cardiomyopathy, PNA, )
ED Past Surgical History: Cardiac ( pacer/Defibulator, VT ablation, Cardiac arrest), Cholecystectomy and Urological (TURP)
Social History
Tobacco: Non-smoker
Alcohol: None
Drug: None
Personal:
Living: with family
Review of Systems
<Rebecca Redd PA-C - Last Filed: 03/05/24 13:49>
Review of Systems
All Other Systems: ROS reviewed and negative except as documented in HPI and ROS
Phy Exam
<Rebecca Redd PA-C - Last Filed: 03/05/24 13:49>
Physical Exam
Physical Exam:
General: Patient is well appearing and in no acute distress; non-toxic
Skin: Warm and dry, no rashes or lesions
Head: Normocephalic, atraumatic
Eyes: Sclera non-icteric. EOMs intact. PERRLA.
Cardiac: Regular rate and rhythm, no murmur
Peripheral Vascular: No lower extremity swelling or edema
Pulm: Normal respiratory effort
Abdomen: No abdominal tenderness, no palpable masses
Genitourinary: Mild erythema noted in the intergluteal cleft with no warmth or tenderness of the skin. No perirectal erythema, no anal fissures or tears, no active bleeding noted, heme-negative stool. Good rectal tone. moderate amount of stool
noted in rectal vault.
Neuro: CN II-XII intact, no focal neurologic deficits.
Psychiatric: Appropriate mood and affect.
Course
<Rebecca Redd PA-C - Last Filed: 03/05/24 13:49>
Orders/Labs/Results
Orders:
Orders
03/05/24 12:30
Midodrine [ProAmatine] 5 mg PO NOW STA
Vital Signs
Initial and Last Documented VS:
Initial Vital Signs
Temp Pulse Resp BP Pulse Ox
97.7 F 67 18 88/56 96
03/05/24 10:18 03/05/24 10:18 03/05/24 10:18 03/05/24 10:18 03/05/24 10:18
Last Documented Vital Signs
Temp Pulse Resp BP Pulse Ox
97.7 F 67 18 116/69 98
03/05/24 10:18 03/05/24 10:18 03/05/24 10:18 03/05/24 13:35 03/05/24 13:36
<Tirso Rich DO - Last Filed: 03/05/24 12:36>
Orders/Labs/Results
Orders:
Orders
03/05/24 12:30
Midodrine [ProAmatine] 5 mg PO NOW STA
Vital Signs
Initial and Last Documented VS:
Initial Vital Signs
Temp Pulse Resp BP Pulse Ox
97.7 F 67 18 88/56 96
03/05/24 10:18 03/05/24 10:18 03/05/24 10:18 03/05/24 10:18 03/05/24 10:18
Last Documented Vital Signs
Temp Pulse Resp BP Pulse Ox
97.7 F 67 18 116/69 98
03/05/24 10:18 03/05/24 10:18 03/05/24 10:18 03/05/24 13:35 03/05/24 13:36
<Rebecca Redd PA-C - Last Filed: 03/05/24 13:49>
MDM/Problems Addressed
Differential Diagnosis Includes:
Differentials include constipation, gastroenteritis, fecal rectal impaction, small bowel obstruction, large bowel obstruction
MDM/Problems Addressed:
Constipation
Chronic conditions affecting care:
HTN, CKD, BPH, CAD, hypothyroidism,
<Rebecca Redd PA-C - Last Filed: 03/05/24 13:49>
*Pulse Oximetry
Patient hypoxic: no
*Critical Care Note
Total Time (30-74mins, 75-104mins- exclusive of procedures): Not Applicable
Data Reviewed
Review of Other/Old Records Reveals: Records, Radiology Studies (Reviewed abdomen x-ray imaging and report from yesterday which demonstrates a large amount of stool throughout the colon with no evidence of free intraperitoneal air) and Discharge
Summary (Reviewed discharge summary from 12/29/2023)
Source: patient and records
<Rebecca Redd PA-C - Last Filed: 03/05/24 13:49>
Patient Management
Escalation/DeEscalation of care consider admission/obs:
This is a 78 y/o male with a PMH of HTN, CKD, BPH, CAD, presenting to the ER with constipation x7 days. Patient states that the last time he had a normal bowel movement was 7 days ago. Patient has been trying MiraLAX at home with no relief.
Patient normally has a bowel movement every other day. On exam, there is stool in the rectal vault which is negative. Upon manual disimpaction, I was able to remove a moderate amount of stool from the rectal vault. Patient subsequently had a
enema which helped him have a small bowel movement but he was not able to hold the fluid within the rectal vault for a substantial amount of time. Patient states that he feels that better. No concern for bowel obstruction or any perforation or
other intra-abdominal pathology. We will send patient home with lactulose, patient does have a follow-up with his primary on Monday and I told that he should have his symptoms reassessed at that time. Patient stable for discharge.
ED Attending Note
<Rebecca Redd PA-C - Last Filed: 03/05/24 13:49>
-
Portions of this chart may have been created with voice recognition software.� Occasional wrong word or��sound alike� substitutions may have occurred due to the inherent limitations of voice recognition software.
<Tirso Rich DO - Last Filed: 03/05/24 12:36>
ED Attending Note
Patient seen and examined by attending physician: Yes
I performed a history and physical exam of patient and discussed management with resident, I reviewed resident's note and agree with documented findings and plan of care.: Yes
ED Attending Note:
I have reviewed and agree with history and treatment plan by Rebecca Redd. My exam revealed 6-year-old male with soft abdomen, no acute distress. Suspect constipation and fecal impaction, disimpaction performed. Will give enema, and start
patient on MiraLAX. Return precautions given
Discharge Plan
Departure
Patient Disposition: Home (Routine Discharge)
Date of Disposition: 03/05/24
Time of Disposition: 13:18
Patient with high blood pressure during this ER visit?: No
Condition: Good
Discharge Problem:
Constipation, Fecal impaction
Instructions: Constipation, Adult (DC), Fecal Impaction (DC), BLOOD PRESSURE
Prescriptions:
New
lactulose 10 gram/15 mL (15 mL) solution
10 g PO DAILY Qty: 600 0RF
No Action
rosuvastatin [Crestor] 20 MG tablet
20 mg PO QPM
Hold Instructions: Resume on 01/26/23. Restart once liver function numbers are back to normal.
levothyroxine 50 MCG tablet
50 mcg PO DAILY AT 0700
nitroglycerin 0.4 MG tablet, sublingual
0.4 mg sublingual [id number] PRN (Reason: chest pain)
amiodarone [Pacerone] 200 MG tablet
200 mg PO DAILY
Patient Comments:
pt stated Dr Noland decreased dose to daily
aspirin 81 MG tablet,delayed release (DR/EC)
81 mg PO QPM
dutasteride 0.5 MG capsule
0.5 mg PO DAILY@0700
acetaminophen 325 mg Tablet
650 mg PO Q4HPRN PRN (Reason: mild pain/PALACIO/temp> 100.4F) 14 Days Qty: 30 0RF
lidocaine 4 % Adhesive Patch,Medicated
1 patch topical DAILY Qty: 30 0RF
carvedilol 6.25 mg tablet
6.25 mg PO BID Qty: 60 0RF
midodrine 5 mg Tablet
5 mg PO TID@0800,1300,1800 PRN (Reason: hypotension) Qty: 90 0RF
Rx Instructions:
Hold for SBP>110
spironolactone 12.5 MG tablet
12.5 mg PO DAILY Qty: 30 0RF
Rx Instructions:
See cardiology instruction regarding restarting
furosemide 20 mg tablet
20 mg PO DAILY Qty: 30 0RF
dapagliflozin propanediol [Farxiga] 10 mg tablet
10 mg PO DAILY Qty: 30 5RF
Referrals:
Padmini Mueller DO [Family Provider] -
Activity Restrictions/Additional Instructions:
We have sent a medication called lactulose to your pharmacy. You can drink 15 ml of the solution once daily. If this does not resolve your symptoms within 3 days, please follow up with your primary care provider.
I recommend increasing fiber in your diet as well.
Please return to the emergency department should you experience abdominal pain, nausea, vomiting, chest pain, shortness of breath, or any other signs or symptoms concerning to you.
Interventions
Interventions:
*ED COVID-19 Vaccine History Last Done: 03/05/24 10:18
*Nursing Disposition Last Done: 03/05/24 13:42
Discharge Date and Time
Discharge Date/Time: 03/05/24 13:43
Print Language: PASHTO
[2024-03-05 11:37] VITALS: BP 122/77
[2024-03-05 12:00] VITALS: BP 105/61
[2024-03-05] MEDS: ProAmatine 5 MG PO (12:41)
[2024-03-05 13:35] VITALS: BP 116/69
== END 2024-03-05 13:43 | disposition home or self-care (01) ==
LOC: EMR 10:10
PROVIDERS: EMERGENCY PHYSICIAN Emergency Medicine; FAMILY PHYSICIAN Internal Medicine
DX: K59.00 Constipation, unspecified (principal); I13.0 Hypertensive heart and chronic kidney disease with heart failure and stage 1 through stage 4 chronic kidney disease, or unspecified chronic kidney disease; I50.9 Heart failure, unspecified; N18.9 Chronic kidney disease, unspecified; E03.9 Hypothyroidism, unspecified; E78.00 Pure hypercholesterolemia, unspecified; I25.10 Atherosclerotic heart disease of native coronary artery without angina pectoris; N40.0 Benign prostatic hyperplasia without lower urinary tract symptoms; Z85.51 Personal history of malignant neoplasm of bladder; Z86.74 Personal history of sudden cardiac arrest; Z90.49 Acquired absence of other specified parts of digestive tract; Z90.79 Acquired absence of other genital organ(s)
CPT/HCPCS: 99282

== ENCOUNTER → 2024-03-14 15:19 | Outpatient (REF) | payer OTHER, SELFPAY | LOC: HWRAD 15:19 | PROVIDERS: ATTENDING PHYSICIAN Internal Medicine | DX: R63.4 Abnormal weight loss (principal); R79.89 Other specified abnormal findings of blood chemistry | CPT/HCPCS: 74176 ==

== ENCOUNTER → 2024-03-26 09:57 | Outpatient (REF) | payer OTHER, SELFPAY | LOC: HWRAD 09:57 | PROVIDERS: ATTENDING PHYSICIAN Internal Medicine | DX: R91.1 Solitary pulmonary nodule (principal); R63.4 Abnormal weight loss | CPT/HCPCS: 71250 ==

== ENCOUNTER 2024-06-26 07:56 | Day surgery (SDC) | payer OTHER, SELFPAY ==
[2024-06-26] VITALS (28 sets, daily range): BP systolic 93–153; BP diastolic 61–90; BMI 24.3
[2024-06-26] MEDS: NSS 199 ML IV (08:49)
[2024-06-26 08:56] LABS: Hematocrit 47.3 % (39.0-52.0); Hemoglobin 15.7 g/dL (13.0-18.0); Mean Corp Hgb Conc. 33.2 g/dL (33.0-37.0); Mean Corpuscular Hgb 32.8 pg (27.0-31.0); Platelet Count 176 10^3/uL (130-400); Red Blood Cell Count 4.78 10^6/uL (4.70-6.10); Red Cell Dist. Width 13.6 % (11.5-14.5); White Blood Cell Count 8.8 10^3/uL (4.8-10.8)
[2024-06-26 09:03] LABS: APTT 29.2 Sec (23.4-35.0); INR 1.03; PT 13.5 Sec (11.4-14.6)
--- NOTE | 2024-06-26 09:32 | W.SUR.PREOP ---
Pre-Operative Surgical Note
-
I have examined this patient prior to the performance of the scheduled procedure.
The patient's condition is unchanged from the time of the current History and
Physical and the patient is able to undergo the scheduled procedure.
[2024-06-26 09:45] LABS: Blood Urea Nitrogen 28 mg/dl (9-20); Carbon Dioxide 29 mmol/L (22-30); Chloride 105 mmol/L (98-107); Estimated Creatinine Clearance 47 ml/min; Glucose 95 mg/dl (70-99); Potassium 4.8 mmol/L (3.5-5.1); Sodium 142 mmol/L (135-145); eGFR > 60.00
--- NOTE | 2024-06-26 10:49 | W.SUR.POST ---
Surgical Immediate Post Op
Note
Pre Op Diagnosis: Nonhealing wound
Post Op Diagnosis: Same
Procedure Performed: Diagnostic right lower extremity arteriogram, with pullback pressure measurement
Primary Surgeon: Shalom
Anesthesia: Local and sedation
Estimated Blood Loss: Less than 2 cc
Fluids: See anesthesia flowsheet
Drains/Shunts: None
Specimens/Cultures: None
Doppler/Duplex/Angio (Y/N): Y
Complications: None
Operative Findings: Eccentric calcified plaque throughout arteries but no severe stenosis with patent three-vessel runoff
--- NOTE | 2024-06-26 14:41 | OR.RPT ---
Operative Report
Operative Report
PROCEDURE DATE: 06/26/2024
Preoperative diagnosis: PAD, nonhealing right foot wound
Postoperative diagnosis: Same
Procedure:
1. Duplex assisted left common femoral artery cannulation.
2. Aortogram and pelvic angiogram.
3. Right lower extremity arteriogram with selective catheterization of the right popliteal artery.
4. Pullback pressure measurements right above-knee popliteal artery.
5. Supervision and interpretation.
Surgeon: Rausch
Infectious Diseases Physician: None
Complications: None
Anesthesia: Local, sedation
Fluoroscopy:
7.2 min
24 mGy
6.70 Gy.cm2
Indications for procedure:
Nonhealing right foot wound. Noninvasive studies demonstrated unobtainable MARK and TBI's. Raise concern for arterial insufficiency. Risk/benefits/alternatives of angiography were fully discussed. Patient understood all wish to proceed.
Description of procedure:
Patient was identified, brought to the operating room. Placed on the table in the supine position. After the adequate administration of anesthesia, the patient was prepped and draped in the standard surgical fashion. A standard preoperative
timeout was undertaken and everybody was in agreement with the plan.
The left common femoral artery was accessed with a micropuncture kit under direct duplex ultrasound guidance. Note, the femoral bifurcation was high and initially I punctured the superficial femoral artery intentionally as it was more overlying the
femoral head. However I then correlated fluoroscopy to ultrasound, and I noted that the distal common femoral artery was indeed over the femoral head and there was a short segment that I could puncture safely. I therefore withdrew the needle from
the superficial femoral artery and held manual pressure. I then repunctured the common femoral artery slightly more cephalad. This was also done under direct duplex ultrasound guidance with a micropuncture kit. A 5 [place] sheath was then advanced
over a 0.035 inch wire, and a velarde's hook catheter was advanced into the abdominal aorta. Aortogram and pelvic angiogram was obtained. Findings as follows:
Patent infrarenal aorta and bilateral common and external iliac arteries with no evidence of significant stenosis. Some eccentric calcified plaque could be noted throughout.
Using a floppy angled hydrophilic wire, the right common femoral artery was cannulated and the catheter was advanced. Right lower extremity arteriogram was obtained. Findings as follows:
Common femoral artery: Patent with mild approximately 30 to 40% stenosis in the mid common femoral artery.
Profunda femoris artery: Patent with eccentric calcified plaque, but no significant stenosis.
Superficial femoral artery: Patent with eccentric calcified plaque but no definitive stenosis.
Popliteal artery: Patent with a segment in the mid above-knee popliteal artery with what appeared to be some popcorn plaque and potential opacity suggesting possible plaque. But no hourglass like stenosis. No definitive flow limitation. Remainder
of the popliteal artery below the knee was patent with no significant stenosis.
Anterior tibial artery: Patent with mild stenosis about 6 to 8 cm beyond its origin focally. No additional stenosis that was severe. However there was just some luminal irregularities throughout demonstrating calcified eccentric plaque.
Tibial peroneal trunk: Patent with no significant stenosis, mild luminal irregularities.
Peroneal artery: Luminal irregularities throughout but no significant stenosis. Distally became somewhat diminutive in stature.
Posterior tibial artery: Patent with no significant stenosis. Also noted luminal irregularities with likely eccentric calcified plaque but no severe stenoses noted. Patent flow across the ankle into the foot giving rise to both plantar arteries.
Good filling of collaterals in the foot via the dorsalis pedis and plantar arteries. However, all these collaterals and the plantar arteries themselves were small in stature, likely chronically diseased with eccentric calcified plaque.
There was no definitive focal stenosis that I could identify, however there was that area in the above-knee popliteal artery with popcorn-like plaque. Therefore in order to assess whether there was any stenosis within there, I then used a flopping
on hydrophilic wire and a angled glide catheter to cannulate the behind knee/below-knee popliteal artery. 1 side advance my catheter into the distal behind knee popliteal artery, I then hooked up to a arterial transducer line. I then measured
pressures across the perceived area of potential stenosis/plaque. There was no significant pressure drop whatsoever. Pressures were maintained exactly below and above the region of interest. Therefore I did not see any reason to perform any
intervention. At this point I was very satisfied. I withdrew my catheters and wires. Left femoral angiogram demonstrated good puncture in the left common femoral artery. As suspected and noted on my ultrasound while puncturing the artery there
was a high femoral bifurcation but the puncture appeared to be satisfactory in the common femoral artery over the femoral head. At this point, the wires and catheters were withdrawn. The patient was transported to the recovery room where the
sheath was withdrawn and manual pressure was applied. The patient tolerated the procedure well.
== END 2024-06-26 17:37 | disposition home or self-care (01) ==
LOC: CATH 07:56
PROVIDERS: ATTENDING PHYSICIAN Surgery Vascular Surgery; FAMILY PHYSICIAN Internal Medicine; OTHER PHYSICIAN Internal Medicine Cardiovascular Disease
DX: I70.235 Atherosclerosis of native arteries of right leg with ulceration of other part of foot (principal); L97.519 Non-pressure chronic ulcer of other part of right foot with unspecified severity; I25.10 Atherosclerotic heart disease of native coronary artery without angina pectoris; I11.0 Hypertensive heart disease with heart failure; E78.00 Pure hypercholesterolemia, unspecified; I25.5 Ischemic cardiomyopathy; I44.7 Left bundle-branch block, unspecified; I25.2 Old myocardial infarction; Z79.899 Other long term (current) drug therapy; Z79.82 Long term (current) use of aspirin; Z79.890 Hormone replacement therapy
CPT/HCPCS: 36247; 75716; 75625; 76937; 80048; 85027; 85610; 85730; 86850; 86900; 86901; C1769; C1894; Q9967

== ENCOUNTER → 2024-07-05 13:37 | Outpatient (REF) | payer OTHER, SELFPAY | LOC: MRI 13:37 | PROVIDERS: ATTENDING PHYSICIAN Internal Medicine Gastroenterology; FAMILY PHYSICIAN Internal Medicine | DX: K86.2 Cyst of pancreas (principal) | CPT/HCPCS: 74183; A9575 ==

== ENCOUNTER → 2024-11-07 13:39 | Outpatient (REF) | payer OTHER, SELFPAY | LOC: MRI 13:39 | PROVIDERS: ATTENDING PHYSICIAN Podiatrist Foot Surgery; FAMILY PHYSICIAN Internal Medicine | DX: L97.512 Non-pressure chronic ulcer of other part of right foot with fat layer exposed (principal) | CPT/HCPCS: 73718 ==

== ENCOUNTER → 2024-12-17 09:18 | Outpatient (REF) | payer OTHER, SELFPAY | LOC: RAD 09:18 | PROVIDERS: ATTENDING PHYSICIAN Registered Nurse; FAMILY PHYSICIAN Internal Medicine | DX: I73.9 Peripheral vascular disease, unspecified (principal) | CPT/HCPCS: 93922; 93925 ==

== ENCOUNTER → 2025-06-25 12:41 | Outpatient (REF) | payer OTHER, SELFPAY | LOC: RAD 12:41 | PROVIDERS: ATTENDING PHYSICIAN Surgery Vascular Surgery; FAMILY PHYSICIAN Internal Medicine | DX: I73.9 Peripheral vascular disease, unspecified (principal) | CPT/HCPCS: 93922; 93925 ==